=== PATIENT | female | born 1945 | race Asian ===

== ENCOUNTER 2021-11-27 16:47 | Inpatient (IN) | payer OTHER, SELFPAY ==
--- NOTE | ~2021-11-27 | CT_ITS ---
EXAMINATION: CT ANGIOGRAM OF THE CHEST WITH AND WITHOUT CONTRAST (CT PULMONARY ANGIOGRAM FOR PE) CLINICAL INFORMATION: Reason for Exam sob hx of PTB COMPARISON: None TECHNIQUE: Prior to contrast administration, noncontrast localization images were obtained. Subsequently, multidetector volumetric imaging was performed from the thoracic inlet to below the diaphragms following the administration of 54 mL Omnipaque 350 intravenous contrast. No contrast reaction reported Sagittal, coronal, and MIP oblique sagittal reformatted images were obtained on the CT workstation, uploaded to PACS, and reviewed. This CT examination was performed using dose optimization techniques as appropriate, variously including the following: *Automated exposure control *Adjustment of mA and/or kV according to patient size (this includes techniques or standardized protocols for targeted exams where dose is matched to indication/reason for exam; i.e. extremities or head) *Use of iterative reconstruction technique Total exam dose-length product 154 mGy-cm FINDINGS: QUALITY OF STUDY/CONTRAST BOLUS: Satisfactory. PULMONARY ARTERIES: No central or segmental pulmonary emboli. The left pulmonary artery is smaller compared to right side likely secondary to chronic changes. THORACIC AORTA: No aneurysm or dissection. LUNG: There is loss of left lung volume with lower lobe and left apical chronic scarring and consolidative changes. In addition there is scattered interstitial thickening throughout the left lung. Scattered right upper lobe parenchymal interstitial thickening and calcification seen likely chronic changes. PLEURA: There is bilateral apical pleural thickening and calcification suggestive chronic changes. MEDIASTINUM: The entire mediastinum is shifted to the left due to chronic left lung volume loss Normal heart size. No pericardial effusion. No hilar or mediastinal lymphadenopathy. No evidence of septal bowing or right heart strain. CHEST WALL/AXILLA: No axillary or internal mammary lymphadenopathy. OSSEOUS STRUCTURES: No lytic or sclerotic process seen. UPPER ABDOMEN: Visualized liver, spleen appears unremarkable. No reflux of contrast into the hepatic veins to suggest elevated right heart pressures. CT/CT angio chest PE protocol IMPRESSION: No evidence of PE. No evidence aortic dissection. Chronic pleural/thickening parenchymal scarring left lung with significant loss of left lung volume and ipsilateral mediastinal shift. There are scattered pleural and parenchymal calcifications. Mild right apical parenchymal scarring and pleural thickening is seen as well. VTE: negative
--- NOTE | 2021-11-27 16:53 | ED.SOB ---
HPI - SOB/Dyspnea General Chief Complaint: Dyspnea Stated Complaint: weakness,cough ,congestion Time Seen by Provider: 11/27/21 16:53 Source: patient and family Mode of arrival: wheelchair Limitations: no limitations History of Present Illness HPI Narrative: Patient with history of chronic lung disease history of PTB treated, lung fibrosis recurrent infections last sputum culture in 05/09 grew Pseudomonas been on tobramycin inhaler treated frequently for Pseudomonas infection comes here for 2 weeks of increased cough and congestion with low-grade fever, tested COVID 19 at home negative ,patient visited [place] and other family member was sick at that time. 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 2 weeks which she finished 4 days ago also prescribed prednisone 10 mg daily which she finished 1 week ago patient ,on arrival saturating 92% at room air, feel very weak and congested Related Data Home Medications Medication Instructions Recorded Confirmed mucus clearing device 11/22/21 mucus clearing device (Aerobika 11/22/21 Oscillating PEP Systm) omeprazole 20 mg capsule,delayed 20 mg PO DAILY 11/22/21 11/27/21 release sertraline 100 mg tablet 100 mg PO BEDTIME 11/22/21 11/27/21 tobramycin 300 mg/5 mL in 0.225 % 300 mg INHALATION Q12H 11/22/21 11/27/21 sodium chloride for nebulization atorvastatin 10 mg tablet 1 tab PO DAILY 11/27/21 11/27/21 calcium carbonate 600 mg-vitamin 1 tab PO BID 11/27/21 11/27/21 D3 5 mcg (200 unit) tablet cetirizine 10 mg tablet 1 tab PO BEDTIME 11/27/21 11/27/21 donepezil 5 mg tablet 5 mg PO DAILY 11/27/21 11/27/21 fluticasone 250 mcg-salmeterol 50 1 puff INHALATION Q12H 11/27/21 11/27/21 mcg/dose blistr powdr for inhalation (Sugey Inhwinsome) levalbuterol HCl 0.31 mg/3 mL 1 amp INHALATION Q4H PRN 11/27/21 11/27/21 solution for nebulization mirabegron 50 mg tablet,extended 1 tab PO DAILY 11/27/21 11/27/21 release 24 hr (Myrbetriq) tolterodine 1 mg tablet 1 tab PO BID 11/27/21 11/27/21 triamcinolone acetonide 0.1 % 1 appl TOPICAL DAILY 11/27/21 11/27/21 topical cream vitamin A-vitamin C-vit E-min 1 tab PO DAILY 11/27/21 11/27/21 tablet Allergies Allergy/AdvReac Type Severity Reaction Status Date / Time Sulfa (Sulfonamide Allergy Intermediate Rash Verified 11/27/21 17:04 Antibiotics) Review of Systems Review of Systems: Yes all other systems are reviewed and are negative [facility] Family History Family History Mother HTN (hypertension) Family/Other HTN (hypertension) Social History Social History Alcohol intake: never Patient Tobacco Use Status: Never used Tobacco Use of substances other than those prescribed or required for medical reasons: No Advance Directives: No Advance Directives Information Provided: No Physical Exam Vital Signs: Vital Signs: Last Vital Signs Temp 97.9 F 11/28/21 00:26 Pulse 63 11/28/21 00:26 Resp 20 11/28/21 00:26 BP 139/53 L 11/28/21 00:26 Pulse Ox 92 11/28/21 00:26 BMI result Body Mass Index 19.3 Appearance: Alert. Oriented X3. No acute distress. Eyes: No pallor or icterus ENT: Pharynx normal. Oral Mucosa moist Neck: Normal inspection. Neck supple. CVS: Normal heart rate and rhythm. Pulses normal. Respiratory: Mild respiratory distress with coarse crackles bilateral more on the left side Equal air entry bilateral, prolonged expiration Abdomen: Soft and nontender. Bowel sounds are present, no mass palpable, no CVA tenderness Skin: Skin warm and dry. Normal skin color. Normal skin turgor. Extremities: No lower extremity edema. No calf tenderness Neuro: Oriented X 3. No motor deficit. No sensory deficit.No cerebellar signs , cranial nerves II-XII intact MDM - SOB/Dyspnea MDM Narrative Medical decision making narrative: Patient with chronic lung disease already been vaccinated against COVID including a booster dose home test COVID negative comes here for increased shortness of breath pulse ox dropped to 89% at room air fluid, COVID-19 PCR came back positive. Will get CTA chest to rule out PE and pneumonia Patient's CTA chest showed chronic changes on the left side of the lung no active infiltrate noticed no PE because of the risk of Pseudomonas infection will start patient on Zosyn also Case discussed with Dr. Dempsey infectious Disease advised to start on remdesivir, Decadron also on baricitinib. As patient has very high chances mortality because of poor lung condition. At this time resting patient is saturating 90% will admit patient medicine service Differential Diagnosis Differential diagnosis: Likely acute exacerbation of chronic obstructive airways disease, pneumonia and pulmonary embolism Medical Records Attestation: I reviewed the patient's medical records. Lab Data Attestation: I reviewed the patient's lab results. Result diagrams: 11/27/21 17:39 11/27/21 17:39 Labs: Lab Results 11/27/21 11/27/21 11/27/21 Range/Units 17:39 17:39 17:39 WBC 8.3 (4.8-10.8) X10*3/uL RBC 4.15 L (4.20-5.50) X10*6/uL Hgb 10.6 L (12.0-16.0) g/dl Hct 34.1 L (37.0-47.0) % MCV 82.2 (80.0-98.0) fL MCH 25.5 L (27.0-33.0) pg MCHC 31.1 (31.0-35.0) g/dl RDW 16.9 H (11.0-16.0) % Plt Count 214 (160-400) X10*3/uL MPV 9.8 (9.4-12.3) fL Immature Gran % (Auto) 0.2 (0.0-0.4) % Neut % (Auto) 60.3 (45-73) % Lymph % (Auto) 27.0 (20-40) % [place] % (Auto) 10.8 (2-11) % Eos % (Auto) 1.5 (0-4) % Baso % (Auto) 0.2 (0-2) % Lymph # (Auto) 2.2 (1.2-4.9) X10*3/uL [place] # (Auto) 0.9 (0.1-1.2) X10*3/uL Eos # (Auto) 0.1 (0.0-0.4) X10*3/uL Baso # (Auto) 0.0 (0.0-0.2) X10*3/uL Abs Immat Gran (auto) 0.02 (0.00-0.03) X10*3/uL Absolute Neuts (auto) 5.0 (2.0-8.3) x10*3/uL Absolute Nucleated RBC 0.000 (0.0-0.012) X10*3/uL Nucleated RBC % (auto) 0.0 (0.0-0.2) /100WBC PT 12.1 (9.9-13.0) SEC INR 1.1 (0.9-1.1) APTT 32.1 (24.1-38.0) SEC Sodium 135 (135-145) mmol/L Potassium 4.6 (3.3-5.1) mmol/L Chloride 101 (96-108) mmol/L Carbon Dioxide 26 (22-29) mmol/L Anion Gap 13 (12-20) BUN 16 (9-16) mg/dL Creatinine 0.62 (0.5-1.4) mg/dL Estim Creat Clear Calc 63.1 Estimated GFR > 60 Random Glucose 77 (60-115) mg/dL Lactic Acid (0.5-2.0) mmol/L Calcium 9.0 (8.4-10.2) mg/dL Total Bilirubin < 0.2 (0.0-1.0) mg/dL AST 25 (5-31) U/L ALT 16 (0-31) U/L Alkaline Phosphatase 66 (39-117) U/L B-Natriuretic Peptide (<100) pg/mL Total Protein 6.7 (6.5-8.0) g/dL Albumin 3.5 (3.5-5.0) g/dL Urine Color Urine Appearance Urine pH (5.0-8.0) Ur Specific [place] (1.005-1.025) Urine Protein (NEG-TRACE) MG/DL Urine Glucose (UA) (NEG) MG/DL Urine Ketones (NEG) MG/DL Urine Blood (NEG) Urine Nitrite (NEG) Ur Leukocyte Esterase (NEG) Urine RBC (0) /HPF Urine WBC (0-4) /HPF Ur Squamous Epith Cells /LPF Urine Bacteria /LPF Influenza Type A (PCR) (Negative) Influenza Type B (PCR) (Negative) RSV RNA Qual (PCR) (Negative) SARS-CoV-2 RNA (RT-PCR) (Negative) 11/27/21 11/27/21 11/27/21 Range/Units 17:39 17:40 17:40 WBC (4.8-10.8) X10*3/uL RBC (4.20-5.50) X10*6/uL Hgb (12.0-16.0) g/dl Hct (37.0-47.0) % MCV (80.0-98.0) fL MCH (27.0-33.0) pg MCHC (31.0-35.0) g/dl RDW (11.0-16.0) % Plt Count (160-400) X10*3/uL MPV (9.4-12.3) fL Immature Gran % (Auto) (0.0-0.4) % Neut % (Auto) (45-73) % Lymph % (Auto) (20-40) % [place] % (Auto) (2-11) % Eos % (Auto) (0-4) % Baso % (Auto) (0-2) % Lymph # (Auto) (1.2-4.9) X10*3/uL [place] # (Auto) (0.1-1.2) X10*3/uL Eos # (Auto) (0.0-0.4) X10*3/uL Baso # (Auto) (0.0-0.2) X10*3/uL Abs Immat Gran (auto) (0.00-0.03) X10*3/uL Absolute Neuts (auto) (2.0-8.3) x10*3/uL Absolute Nucleated RBC (0.0-0.012) X10*3/uL Nucleated RBC % (auto) (0.0-0.2) /100WBC PT (9.9-13.0) SEC INR (0.9-1.1) APTT (24.1-38.0) SEC Sodium (135-145) mmol/L Potassium (3.3-5.1) mmol/L Chloride (96-108) mmol/L Carbon Dioxide (22-29) mmol/L Anion Gap (12-20) BUN (9-16) mg/dL Creatinine (0.5-1.4) mg/dL Estim Creat Clear Calc Estimated GFR Random Glucose (60-115) mg/dL Lactic Acid 0.6 (0.5-2.0) mmol/L Calcium (8.4-10.2) mg/dL Total Bilirubin (0.0-1.0) mg/dL AST (5-31) U/L ALT (0-31) U/L Alkaline Phosphatase (39-117) U/L B-Natriuretic Peptide 113 H (<100) pg/mL Total Protein (6.5-8.0) g/dL Albumin (3.5-5.0) g/dL Urine Color Urine Appearance Urine pH (5.0-8.0) Ur Specific [place] (1.005-1.025) Urine Protein (NEG-TRACE) MG/DL Urine Glucose (UA) (NEG) MG/DL Urine Ketones (NEG) MG/DL Urine Blood (NEG) Urine Nitrite (NEG) Ur Leukocyte Esterase (NEG) Urine RBC (0) /HPF Urine WBC (0-4) /HPF Ur Squamous Epith Cells /LPF Urine Bacteria /LPF Influenza Type A (PCR) NEGATIVE (Negative) Influenza Type B (PCR) NEGATIVE (Negative) RSV RNA Qual (PCR) NEGATIVE (Negative) SARS-CoV-2 RNA (RT-PCR) POSITIVE A (Negative) 11/27/21 Range/Units 21:56 WBC (4.8-10.8) X10*3/uL RBC (4.20-5.50) X10*6/uL Hgb (12.0-16.0) g/dl Hct (37.0-47.0) % MCV (80.0-98.0) fL MCH (27.0-33.0) pg MCHC (31.0-35.0) g/dl RDW (11.0-16.0) % Plt Count (160-400) X10*3/uL MPV (9.4-12.3) fL Immature Gran % (Auto) (0.0-0.4) % Neut % (Auto) (45-73) % Lymph % (Auto) (20-40) % [place] % (Auto) (2-11) % Eos % (Auto) (0-4) % Baso % (Auto) (0-2) % Lymph # (Auto) (1.2-4.9) X10*3/uL [place] # (Auto) (0.1-1.2) X10*3/uL Eos # (Auto) (0.0-0.4) X10*3/uL Baso # (Auto) (0.0-0.2) X10*3/uL Abs Immat Gran (auto) (0.00-0.03) X10*3/uL Absolute Neuts (auto) (2.0-8.3) x10*3/uL Absolute Nucleated RBC (0.0-0.012) X10*3/uL Nucleated RBC % (auto) (0.0-0.2) /100WBC PT (9.9-13.0) SEC INR (0.9-1.1) APTT (24.1-38.0) SEC Sodium (135-145) mmol/L Potassium (3.3-5.1) mmol/L Chloride (96-108) mmol/L Carbon Dioxide (22-29) mmol/L Anion Gap (12-20) BUN (9-16) mg/dL Creatinine (0.5-1.4) mg/dL Estim Creat Clear Calc Estimated GFR Random Glucose (60-115) mg/dL Lactic Acid (0.5-2.0) mmol/L Calcium (8.4-10.2) mg/dL Total Bilirubin (0.0-1.0) mg/dL AST (5-31) U/L ALT (0-31) U/L Alkaline Phosphatase (39-117) U/L B-Natriuretic Peptide (<100) pg/mL Total Protein (6.5-8.0) g/dL Albumin (3.5-5.0) g/dL Urine Color YELLOW Urine Appearance CLEAR Urine pH 6.0 (5.0-8.0) Ur Specific [place] <= 1.005 (1.005-1.025) Urine Protein NEG (NEG-TRACE) MG/DL Urine Glucose (UA) NEG (NEG) MG/DL Urine Ketones NEG (NEG) MG/DL Urine Blood TRACE (NEG) Urine Nitrite NEG (NEG) Ur Leukocyte Esterase NEG (NEG) Urine RBC 0-2 (0) /HPF Urine WBC 0 (0-4) /HPF Ur Squamous Epith Cells TRACE /LPF Urine Bacteria TRACE /LPF Influenza Type A (PCR) (Negative) Influenza Type B (PCR) (Negative) RSV RNA Qual (PCR) (Negative) SARS-CoV-2 RNA (RT-PCR) (Negative) ECG Data Attestation: I personally reviewed and interpreted this ECG as follows: Interpretation: Sinus rhythm heart rate 67 beats per minute PACs normal interval normal axis no acute ST T wave changes no acute ischemia Critical Care Time Critical Care Time Critical Care Time: Yes Total Critical Care Time: 55 Attestation: I spent 55 minutes of critical care, with interventions, assessments, speaking to patient, consultants, and family. Discharge Plan Discharge Clinical Impression: Acute hypoxemic respiratory failure due to COVID-19, Chronic interstitial lung disease Patient Disposition: Admitted As Inpatient
--- NOTE | 2021-11-27 16:54 | ECG_ITS ---
Test Reason : SOB Blood Pressure : / mmHG Vent. Rate : 067 BPM Atrial Rate : 067 BPM P-R Int : 164 ms QRS Dur : 082 ms QT Int : 376 ms P-R-T Axes : 084 076 072 degrees QTc Int : 397 ms Sinus rhythm with Premature atrial complexes Otherwise normal ECG No previous ECGs available Referred By: Rico Patel Electronically Signed By:Wang Mirza
[2021-11-27] MEDS: Albuterol/Iprat 2.5/0.5MG 3 ML AMPUL.NEB INHALE (17:20)
[2021-11-27 17:21] VITALS: BP 149/85; PULSE 78; RESP 20; TEMP 36.4; O2SAT 98
[2021-11-27 17:25] VITALS: PULSE 87; RESP 20; O2SAT 94
[2021-11-27 17:36] VITALS: BMI 19.3
[2021-11-27 17:44] LABS: MANUAL DIFF FLAG NO
[2021-11-27 17:47] LABS: Basophils Percent Auto 0.2 % (0-2); Eosinophils Absolute Auto 0.1 X10*3/uL (0.0-0.4); Eosinophils Percent Auto 1.5 % (0-4); Hematocrit 34.1 % (37.0-47.0); Hemoglobin 10.6 g/dl (12.0-16.0); Imm Gran Abs Auto 0.02 X10*3/uL (0.00-0.03); Imm Gran Pct Auto 0.2 % (0.0-0.4); Lymphocytes Absolute Auto 2.2 X10*3/uL (1.2-4.9); Mean Corpuscular HGB Conc 31.1 g/dl (31.0-35.0); Mean Corpuscular Hemoglobin 25.5 pg (27.0-33.0); Mean Corpuscular Volume 82.2 fL (80.0-98.0); Mean Platelet Volume 9.8 fL (9.4-12.3); Monocytes Absolute Auto 0.9 X10*3/uL (0.1-1.2); Monocytes Percent Auto 10.8 % (2-11); Neutrophils Percent Auto 60.3 % (45-73); Platelet Count 214 X10*3/uL (160-400); Red Blood Count 4.15 X10*6/uL (4.20-5.50); Red Cell Distribution Width 16.9 % (11.0-16.0); White Blood Count 8.3 X10*3/uL (4.8-10.8)
[2021-11-27 17:52] LABS: INTERNATIONAL NORM RATIO 1.1 (0.9-1.1); Prothrombin Time 12.1 SEC (9.9-13.0)
[2021-11-27 17:54] LABS: Partial Thromboplastin Time 32.1 SEC (24.1-38.0)
[2021-11-27 18:00] VITALS: BP 148/79; PULSE 75; RESP 16; TEMP 37.4; O2SAT 89
[2021-11-27 18:01] LABS: Lactic Acid 0.6 mmol/L (0.5-2.0)
[2021-11-27] MEDS: Piperacillin Sodium/Tazobactam 3.375 GM in 0.9 % Sodium Chloride 50 ML IV (18:06)
[2021-11-27 18:07] LABS: Alanine Aminotransferase 16 U/L (0-31); Albumin Level 3.5 g/dL (3.5-5.0); Alkaline Phosphatase 66 U/L (39-117); Anion Gap 13 (12-20); Aspartate Amino Transferase 25 U/L (5-31); Bilirubin Total < 0.2 mg/dL (0.0-1.0); Blood Urea Nitrogen 16 mg/dL (9-16); Carbon Dioxide 26 mmol/L (22-29); Chloride 101 mmol/L (96-108); Creatinine Clr Calc Pharmacy 63.1; Estimated Glomerular Filt Rate > 60; Glucose Random 77 mg/dL (60-115); Potassium 4.6 mmol/L (3.3-5.1); Sodium 135 mmol/L (135-145); Total Protein 6.7 g/dL (6.5-8.0)
[2021-11-27 18:10] LABS: B Type Natriuretic Peptide 113 pg/mL (<100)
[2021-11-27 18:22] LABS: Influenza A PCR NEGATIVE (Negative); Influenza B PCR NEGATIVE (Negative); Resp Syncy Virus RNA Qual PCR NEGATIVE (Negative); SARS COV2 PCR INHOUSE POSITIVE (Negative)
--- NOTE | 2021-11-27 18:58 | PC.NURSE ---
PATIENT 02 SAT DROP TO 89 % MD AWARE ,PATIENT WAS PUT ON 2 L 02 .
--- NOTE | 2021-11-27 19:02 | PC.NURSE ---
patient had a glass of warm milk ,pbj sandwich and some fruits .
[2021-11-27] MEDS: iohexoL 350 MG/ML 100 ML INFUS..BTL IV (19:37)
[2021-11-27 20:00] VITALS: BP 145/72; PULSE 61; RESP 20; TEMP 36.7; O2SAT 94
[2021-11-27] MEDS: dexAMETHasone sod phosphate 4 MG/ML VIAL 6 MG IVPUSH (20:09)
[2021-11-27] MEDS: Remdesivir 200 MG in 0.9 % Sodium Chloride 210 ML 105 MG IV (21:36)
[2021-11-27 22:00] VITALS: BP 106/70; PULSE 61; RESP 15; O2SAT 94
[2021-11-27 22:02] LABS: Appearance Urine CLEAR; Color Urine YELLOW; Glucose Urine UA NEG (NEG); Leukocyte Esterase Urine NEG (NEG); Nitrite Urine NEG (NEG); Specific Gravity - Urine <= 1.005 (1.005-1.025); UACC Culture Trigger NO; Urine Blood TRACE (NEG); Urine Ketones NEG (NEG); Urine Protein NEG (NEG-TRACE)
[2021-11-27 22:09] LABS: Bacteria Urine TRACE /LPF; RBC Urine 0-2 /HPF (0); Squamous Epithelial Cell Urine TRACE /LPF; WBC Urine 0 /HPF (0-4)
--- NOTE | 2021-11-27 22:11 | PHA.MEDREC ---
Pharmacy Consult ? Medication Reconciliation Pharmacy has completed the medication reconciliation.
[2021-11-27] MEDS: Mirabegron 50 MG TAB.ER.24H PO (23:06)
[2021-11-27] MEDS: Sertraline HCL 50 MG TABLET PO (23:07)
[2021-11-27] MEDS: Loratadine 10 MG TABLET PO (23:07)
--- NOTE | 2021-11-27 23:21 | P.HPHOSP_ITS ---
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 Mentioned that she recently visited [place] after coming back she continued to have the symptoms. Has home tested for COVID-19 which resulted negative but continued to have low-grade fevers; also mentions mild shortness of breath. Denies any abdominal discomfort. Denies any urinary frequency urgency or dysuria. Denies any nausea vomiting or diarrhea. Denies any difficulty swallowing. Mentions that she recently finished a 2 week course of Levaquin; as per the patient's daughter patient takes tobramycin nebulizations month on month of for recurrent Pseudomonas infections. Also finished a course of prednisone. Also mentions she has chronic left-sided lung fibrosis/scarring and has chronic left-sided chest pain going on for more than few months. But for the past week she has been having increased pain on the left side which is nagging/Achy. Reports generalized weakness. Review of all other systems is negative except mentioned above ER course: Per ER team patient on presentation noted to be saturating 89% on room air; placed on supplemental oxygen; noted to mild respiratory distress with coarse crackles bilateral lung mane with prolonged expiration; CT chest was done which showed no evidence of pulmonary embolism but noted left-sided pleural thickening/parenchymal scarring; also noted mild right apical parenchymal scarring and pleural thickening-chronic. Patient was empirically given Zosyn, Decadron, remdesivir,% neb. ER team discussed with Infectious Disease consult. Admitted to the hospital for further management PMFSH Family History Mother HTN (hypertension) Family/Other HTN (hypertension) Social History Alcohol intake: never Patient Tobacco Use Status: Never used Tobacco Use of substances other than those prescribed or required for medical reasons: No Advance Directives: No Advance Directives Information Provided: No service: No Current occupational status: retired Meds Allergies Allergy/AdvReac Type Severity Reaction Status Date / Time Sulfa (Sulfonamide Allergy Intermediate Rash Verified 11/27/21 17:04 Antibiotics) Active Medications: Current Medications Acetaminophen (Acetaminophen 325 Mg Tablet) 650 mg PO Q6H PRN PRN Reason: Pain, Mild (Pain Scale 1-3) Atorvastatin Calcium (Atorvastatin Calcium 10 Mg Tablet) 10 mg PO DAILY [facility] Baricitinib (Baricitinib 2 Mg Tablet) 4 mg PO DAILY [facility] Stop: 12/10/21 09:01 Last Admin: 11/27/21 21:35 Dose: 4 mg Documented by: Dexamethasone Sodium Phosphate (Dexamethasone Sod Phosphate 4 Mg/Ml Vial) 6 mg IVPUSH DAILY [facility] Donepezil HCl (Donepezil Hcl 5 Mg Tablet) 5 mg PO DAILY [facility] Enoxaparin Sodium (Enoxaparin Sodium 40 Mg/0.4 Ml Syringe) 40 mg SUBCUT Q24H [facility] Remdesivir 100 mg/ Sodium (Chloride) 230 mls @ 115 mls/hr IV Q24H [facility] Stop: 12/01/21 22:59 Piperacillin Sod/Tazobactam (Sod 3.375 gm/ Sodium Chloride) 50 mls @ 100 mls/hr IV Q6H [facility] Loratadine (Loratadine 10 Mg Tablet) 10 mg PO BEDTIME [facility] Melatonin (Melatonin 3 Mg Tablet) 6 mg PO BEDTIME PRN PRN Reason: Insomnia Mirabegron (Mirabegron 50 Mg Tab.Er.24h) 50 mg PO DAILY [facility] Morphine Sulfate (Morphine Sulfate 4 Mg/Ml Cartridge) 1 mg IVPUSH Q4H PRN; Protocol PRN Reason: Pain, SOB Non-Formulary Medication (Calcium Carbonate-Vitamin D3) 1 tab PO BID [facility] Non-Formulary Medication (Fluticasone Propion-Salmeterol [Wixela Inhub]) 1 puff INHALE Q12H [facility] Non-Formulary Medication (Tobramycin In 0.225 % Nacl) 300 mg INHALE Q12H [facility] Non-Formulary Medication (Tolterodine) 1 tab PO BID [facility] Non-Formulary Medication (Vitamin A-Vitamin C-Vit E-Min) 1 tab PO DAILY [facility] Omeprazole (Omeprazole 20 Mg Capsule.Dr) 20 mg PO DAILY [facility] Sertraline HCl (Sertraline Hcl 100 Mg Tablet) 100 mg PO BEDTIME [facility] Sodium Chloride (0.9 % Sodium Chloride Flush 3 Ml Syringe) 3 ml IVFLUSH QSHIFT [facility] Tolterodine Tartrate (Tolterodine Tartrate La 2 Mg Cap.Er.24h) 2 mg PO DAILY [facility] Triamcinolone Acetonide (Triamcinolone Acet 0.1 % Cream 15 Gm Tube) 1 appl TOPICAL DAILY [facility]; Protocol Home Medications Medication Instructions Recorded Confirmed Last Taken Type mucus clearing device 11/22/21 Unknown History mucus clearing device (Aerobika 11/22/21 Unknown History Oscillating PEP Systm) omeprazole 20 mg capsule,delayed 20 mg PO DAILY 11/22/21 11/27/21 11/27/21 History release sertraline 100 mg tablet 100 mg PO BEDTIME 11/22/21 11/27/21 11/26/21 History tobramycin 300 mg/5 mL in 0.225 % 300 mg INHALATION Q12H 11/22/21 11/27/21 11/27/21 History sodium chloride for nebulization atorvastatin 10 mg tablet 1 tab PO DAILY 11/27/21 11/27/21 11/27/21 History calcium carbonate 600 mg-vitamin 1 tab PO BID 11/27/21 11/27/21 11/27/21 History D3 5 mcg (200 unit) tablet cetirizine 10 mg tablet 1 tab PO BEDTIME 11/27/21 11/27/21 11/26/21 History donepezil 5 mg tablet 5 mg PO DAILY 11/27/21 11/27/21 11/27/21 History fluticasone 250 mcg-salmeterol 50 1 puff INHALATION Q12H 11/27/21 11/27/21 11/27/21 History mcg/dose blistr powdr for inhalation (Wixela Inhub) levalbuterol HCl 0.31 mg/3 mL 1 amp INHALATION Q4H PRN 11/27/21 11/27/21 Unknown History solution for nebulization mirabegron 50 mg tablet,extended 1 tab PO DAILY 11/27/21 11/27/21 Unknown History release 24 hr (Myrbetriq) tolterodine 1 mg tablet 1 tab PO BID 11/27/21 11/27/21 Unknown History triamcinolone acetonide 0.1 % 1 appl TOPICAL DAILY 11/27/21 11/27/21 Unknown History topical cream vitamin A-vitamin C-vit E-min 1 tab PO DAILY 11/27/21 11/27/21 11/27/21 History tablet Physical Exam Vital Signs and Narrative: Vital Signs: Last Vital Signs Temp 98.0 F 11/27/21 20:00 Pulse 61 11/27/21 22:00 Resp 15 11/27/21 22:00 BP 106/70 11/27/21 22:00 Pulse Ox 94 11/27/21 22:00 BMI result Body Mass Index 19.3 Gen: Appears be in no acute distress; lying comfortably on the bed. Saturating 94-95%. Able to finish full sentences. HEENT: NCAT, Moist mucosa. Pulmonary: Slightly diminished breath sounds on the left side; coarse breath sounds on the right side. CVS: Normal S1-S2 Abdomen: BS+, Soft, Nontender Extremities: Warm well perfused Neuro: Alert and awake. Results Labs CBC and Chem 7: 11/28/21 07:31 11/28/21 07:31 Labs: Laboratory Results - last 24 hr 11/27/21 11/27/21 11/27/21 17:39 17:39 17:39 MCV 82.2 MCH 25.5 L MCHC 31.1 RDW 16.9 H Plt Count 214 MPV 9.8 Immature Gran % (Auto) 0.2 Neut % (Auto) 60.3 Lymph % (Auto) 27.0 [place] % (Auto) 10.8 Eos % (Auto) 1.5 Baso % (Auto) 0.2 Lymph # (Auto) 2.2 [place] # (Auto) 0.9 Eos # (Auto) 0.1 Baso # (Auto) 0.0 Abs Immat Gran (auto) 0.02 Absolute Neuts (auto) 5.0 Absolute Nucleated RBC 0.000 Nucleated RBC % (auto) 0.0 PT 12.1 INR 1.1 APTT 32.1 Anion Gap 13 Estim Creat Clear Calc 63.1 Estimated GFR > 60 Random Glucose 77 Lactic Acid Calcium 9.0 Total Bilirubin < 0.2 AST 25 ALT 16 Alkaline Phosphatase 66 B-Natriuretic Peptide Total Protein 6.7 Albumin 3.5 Urine Color Urine Appearance Urine pH Ur Specific [place] Urine Protein Urine Glucose (UA) Urine Ketones Urine Blood Urine Nitrite Ur Leukocyte Esterase Urine RBC Urine WBC Ur Squamous Epith Cells Urine Bacteria Influenza Type A (PCR) Influenza Type B (PCR) RSV RNA Qual (PCR) SARS-CoV-2 RNA (RT-PCR) 11/27/21 11/27/21 11/27/21 17:39 17:40 17:40 MCV MCH MCHC RDW Plt Count MPV Immature Gran % (Auto) Neut % (Auto) Lymph % (Auto) [place] % (Auto) Eos % (Auto) Baso % (Auto) Lymph # (Auto) [place] # (Auto) Eos # (Auto) Baso # (Auto) Abs Immat Gran (auto) Absolute Neuts (auto) Absolute Nucleated RBC Nucleated RBC % (auto) PT INR APTT Anion Gap Estim Creat Clear Calc Estimated GFR Random Glucose Lactic Acid 0.6 Calcium Total Bilirubin AST ALT Alkaline Phosphatase B-Natriuretic Peptide 113 H Total Protein Albumin Urine Color Urine Appearance Urine pH Ur Specific [place] Urine Protein Urine Glucose (UA) Urine Ketones Urine Blood Urine Nitrite Ur Leukocyte Esterase Urine RBC Urine WBC Ur Squamous Epith Cells Urine Bacteria Influenza Type A (PCR) NEGATIVE Influenza Type B (PCR) NEGATIVE RSV RNA Qual (PCR) NEGATIVE SARS-CoV-2 RNA (RT-PCR) POSITIVE A 11/27/21 21:56 MCV MCH MCHC RDW Plt Count MPV Immature Gran % (Auto) Neut % (Auto) Lymph % (Auto) [place] % (Auto) Eos % (Auto) Baso % (Auto) Lymph # (Auto) [place] # (Auto) Eos # (Auto) Baso # (Auto) Abs Immat Gran (auto) Absolute Neuts (auto) Absolute Nucleated RBC Nucleated RBC % (auto) PT INR APTT Anion Gap Estim Creat Clear Calc Estimated GFR Random Glucose Lactic Acid Calcium Total Bilirubin AST ALT Alkaline Phosphatase B-Natriuretic Peptide Total Protein Albumin Urine Color YELLOW Urine Appearance CLEAR Urine pH 6.0 Ur Specific [place] <= 1.005 Urine Protein NEG Urine Glucose (UA) NEG Urine Ketones NEG Urine Blood TRACE Urine Nitrite NEG Ur Leukocyte Esterase NEG Urine RBC 0-2 Urine WBC 0 Ur Squamous Epith Cells TRACE Urine Bacteria TRACE Influenza Type A (PCR) Influenza Type B (PCR) RSV RNA Qual (PCR) SARS-CoV-2 RNA (RT-PCR) Imaging Radiologist's Impressions: Impressions Chest CTA 11/27/21 19:54 IMPRESSION: No evidence of PE. No evidence aortic dissection. Chronic pleural/thickening parenchymal scarring left lung with significant loss of left lung volume and ipsilateral mediastinal shift. There are scattered pleural and parenchymal calcifications. Mild right apical parenchymal scarring and pleural thickening is seen as well. 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 Noted to have COVID-[address] chest showed no evidence of pulmonary embolism but noted left-sided parenchymal scarring COVID-19 positive: Also initially concern for pneumonia. Patient recently finished 2 week course of Levaquin. Known history of recurrent Pseudomonas infections. Will keep the patient empirically on Zosyn for now. Patient was saturating 89% on room air as per the ER team. Placed on supplemental oxygen p.r.n.. Patient was started on Decadron, Barcitinib, remdesivir in the ER. Will await further recommendations from Infectious Disease consult in regrads continuing above meds. Albuterol inhaler p.r.n. History of pulmonary fibrosis/left-sided pulmonary scarring/left-sided chest pain: Chronic as per the patient. Not on home oxygen. Pulmonary consult. Requested records from [facility]. Patient reports she takes tobramycin nebulizations-month on/month off. History of overactive bladder: Continue home Mirabegron DVT prophylaxis: Lovenox Code status: Full code. Confirmed with the patient's daughter at bedside. Quality Stroke Does the patient have a stroke diagnosis?: No VTE Prior VTE?: No VTE Risk Level:: Medical - moderate - high VTE Device Contraindication: Treatment Not Indicated VTE Drug Contraindication: N/A - Med Ordered
[2021-11-27] MEDS: Albuterol Sulfate 90 MCG 8 GM INHALER 2 PUFF INHALE (23:47)
[2021-11-28 00:26] VITALS: BP 139/53; PULSE 63; RESP 20; TEMP 36.6; O2SAT 92
[2021-11-28] MEDS: Piperacillin Sodium/Tazobactam 3.375 GM in 0.9 % Sodium Chloride 50 ML IV ×3 (01:35→13:48)
[2021-11-28 04:24] VITALS: BP 130/68; PULSE 59; RESP 20; TEMP 36.8; O2SAT 92
[2021-11-28] MEDS: Atorvastatin Calcium 10 MG TABLET PO (07:52)
[2021-11-28] MEDS: dexAMETHasone sod phosphate 4 MG/ML VIAL 6 MG IVPUSH (07:52)
[2021-11-28] MEDS: Mirabegron 50 MG TAB.ER.24H PO (07:52)
[2021-11-28] MEDS: 0.9 % Sodium Chloride Flush 3 ML SYRINGE IVFLUSH (07:52)
[2021-11-28] MEDS: Omeprazole 20 MG CAPSULE.DR PO (07:52)
[2021-11-28] MEDS: Donepezil HCl 5 MG TABLET PO (07:55)
[2021-11-28 08:00] LABS: MANUAL DIFF FLAG NO
[2021-11-28 08:07] LABS: Basophils Percent Auto 0.2 % (0-2); Hematocrit 35.6 % (37.0-47.0); Hemoglobin 11.1 g/dl (12.0-16.0); Imm Gran Abs Auto 0.02 X10*3/uL (0.00-0.03); Imm Gran Pct Auto 0.5 % (0.0-0.4); Lymphocytes Absolute Auto 1.2 X10*3/uL (1.2-4.9); Mean Corpuscular HGB Conc 31.2 g/dl (31.0-35.0); Mean Corpuscular Hemoglobin 25.5 pg (27.0-33.0); Mean Corpuscular Volume 81.7 fL (80.0-98.0); Monocytes Absolute Auto 0.2 X10*3/uL (0.1-1.2); Monocytes Percent Auto 4.1 % (2-11); Neutrophils Percent Auto 68.2 % (45-73); Platelet Count 223 X10*3/uL (160-400); Red Blood Count 4.36 X10*6/uL (4.20-5.50); White Blood Count 4.4 X10*3/uL (4.8-10.8)
[2021-11-28 08:20] LABS: Anion Gap 12 (12-20); Blood Urea Nitrogen 14 mg/dL (9-16); Carbon Dioxide 27 mmol/L (22-29); Chloride 104 mmol/L (96-108); Creatinine Clr Calc Pharmacy 65.2; Estimated Glomerular Filt Rate > 60; Glucose Random 104 mg/dL (60-115); Potassium 4.6 mmol/L (3.3-5.1); Sodium 138 mmol/L (135-145)
--- NOTE | 2021-11-28 08:36 | P.PNIM_ITS ---
Subjective Subjective Date of Service: 11/28/21 Interval History: COVID infection. Review of Systems patient currently denies any shortness of breath or chest pain or nausea or vomiting or abdominal pain or fever or chills or cough. Physical Exam Vital Signs: Vital Signs: Last Vital Signs Temp 98.2 F 11/28/21 04:24 Pulse 59 11/28/21 04:24 Resp 20 11/28/21 04:24 BP 130/68 11/28/21 04:24 Pulse Ox 92 11/28/21 04:24 BMI result Body Mass Index 19.3 Gen: Appears be in no acute distress/lying comfortable/? Sat fine /room air, Able to finish full sentences. HEENT:? NCAT,? Moist mucosa. Pulmonary:? Slightly diminished breath sounds on the left side; coarse breath sounds on the right side. CVS:? Normal S1-S2 Abdomen: BS+, Soft, Nontender Extremities:? no cyanosis or edema Neuro:?aox3 , non focal Objective Data Active Medications Acetaminophen (Acetaminophen 325 Mg Tablet) 650 mg PO Q6H PRN PRN Reason: Pain, Mild (Pain Scale 1-3) Atorvastatin Calcium (Atorvastatin Calcium 10 Mg Tablet) 10 mg PO DAILY [facility] Last Admin: 11/28/21 07:52 Dose: 10 mg Documented by: SATHISH Baricitinib (Baricitinib 2 Mg Tablet) 4 mg PO DAILY [facility] Stop: 12/10/21 09:01 Last Admin: 11/27/21 21:35 Dose: 4 mg Documented by: PERRY-JIMBO Calcium Carbonate/Cholecalciferol (Calcium + Vitamin D 250 Mg Tablet) 500 mg PO BID [facility] Dexamethasone Sodium Phosphate (Dexamethasone Sod Phosphate 4 Mg/Ml Vial) 6 mg IVPUSH DAILY [facility] Last Admin: 11/28/21 07:52 Dose: 6 mg Documented by: SATHISH Donepezil HCl (Donepezil Hcl 5 Mg Tablet) 5 mg PO DAILY [facility] Last Admin: 11/28/21 07:55 Dose: 5 mg Documented by: SATHISH Enoxaparin Sodium (Enoxaparin Sodium 40 Mg/0.4 Ml Syringe) 40 mg SUBCUT Q24H [facility] Last Admin: 11/27/21 23:48 Dose: Not Given Documented by: MICHELLE Non-Admin Reason: Patient Asleep Fluticasone/Vilanterol (Fluticasone/Vilanterol 100/25 Blst.W.Dev) 1 puff INHALE RDAILY [facility] Remdesivir 100 mg/ Sodium (Chloride) 230 mls @ 115 mls/hr IV Q24H [facility] Stop: 12/01/21 22:59 Piperacillin Sod/Tazobactam (Sod 3.375 gm/ Sodium Chloride) 50 mls @ 100 mls/hr IV Q6H [facility] Last Admin: 11/28/21 07:51 Dose: 100 mls/hr Documented by: SATHISH Loratadine (Loratadine 10 Mg Tablet) 10 mg PO BEDTIME [facility] Melatonin (Melatonin 3 Mg Tablet) 6 mg PO BEDTIME PRN PRN Reason: Insomnia Mirabegron (Mirabegron 50 Mg Tab.Er.24h) 50 mg PO DAILY [facility] Last Admin: 11/28/21 07:52 Dose: 50 mg Documented by: SATHISH Morphine Sulfate (Morphine Sulfate 4 Mg/Ml Cartridge) 1 mg IVPUSH Q4H PRN; Protocol PRN Reason: Pain, SOB Multivitamins/Minerals (Multivitamin With Minerals Tablet) 1 tab PO DAILY [facility] Non-Formulary Medication (Tolterodine) 1 tab PO BID [facility] Omeprazole (Omeprazole 20 Mg Capsule.Dr) 20 mg PO DAILY [facility] Last Admin: 11/28/21 07:52 Dose: 20 mg Documented by: SATHISH Sertraline HCl (Sertraline Hcl 100 Mg Tablet) 100 mg PO BEDTIME [facility] Sodium Chloride (0.9 % Sodium Chloride Flush 3 Ml Syringe) 3 ml IVFLUSH QSHIFT [facility] Last Admin: 11/28/21 07:52 Dose: 3 ml Documented by: SATHISH Tobramycin Sulfate (Tobramycin Sulfate 80 Mg/2 Ml Vial) 300 mg INHALE RBID [facility] Tolterodine Tartrate (Tolterodine Tartrate La 2 Mg Cap.Er.24h) 2 mg PO DAILY [facility] Triamcinolone Acetonide (Triamcinolone Acet 0.1 % Cream 15 Gm Tube) 1 appl TOPICAL DAILY [facility]; Protocol Labs CBC & Chem 7: 11/28/21 07:31 11/28/21 07:31 Labs: Laboratory Results - last 24 hr 11/27/21 11/27/21 11/27/21 17:39 17:39 17:39 MCV 82.2 MCH 25.5 L MCHC 31.1 RDW 16.9 H Plt Count 214 MPV 9.8 Immature Gran % (Auto) 0.2 Neut % (Auto) 60.3 Lymph % (Auto) 27.0 [place] % (Auto) 10.8 Eos % (Auto) 1.5 Baso % (Auto) 0.2 Lymph # (Auto) 2.2 [place] # (Auto) 0.9 Eos # (Auto) 0.1 Baso # (Auto) 0.0 Abs Immat Gran (auto) 0.02 Absolute Neuts (auto) 5.0 Absolute Nucleated RBC 0.000 Nucleated RBC % (auto) 0.0 PT 12.1 INR 1.1 APTT 32.1 Anion Gap 13 Estim Creat Clear Calc 63.1 Estimated GFR > 60 Random Glucose 77 Lactic Acid Calcium 9.0 Total Bilirubin < 0.2 AST 25 ALT 16 Alkaline Phosphatase 66 B-Natriuretic Peptide Total Protein 6.7 Albumin 3.5 Urine Color Urine Appearance Urine pH Ur Specific [place] Urine Protein Urine Glucose (UA) Urine Ketones Urine Blood Urine Nitrite Ur Leukocyte Esterase Urine RBC Urine WBC Ur Squamous Epith Cells Urine Bacteria Influenza Type A (PCR) Influenza Type B (PCR) RSV RNA Qual (PCR) SARS-CoV-2 RNA (RT-PCR) 11/27/21 11/27/21 11/27/21 17:39 17:40 17:40 MCV MCH MCHC RDW Plt Count MPV Immature Gran % (Auto) Neut % (Auto) Lymph % (Auto) [place] % (Auto) Eos % (Auto) Baso % (Auto) Lymph # (Auto) [place] # (Auto) Eos # (Auto) Baso # (Auto) Abs Immat Gran (auto) Absolute Neuts (auto) Absolute Nucleated RBC Nucleated RBC % (auto) PT INR APTT Anion Gap Estim Creat Clear Calc Estimated GFR Random Glucose Lactic Acid 0.6 Calcium Total Bilirubin AST ALT Alkaline Phosphatase B-Natriuretic Peptide 113 H Total Protein Albumin Urine Color Urine Appearance Urine pH Ur Specific [place] Urine Protein Urine Glucose (UA) Urine Ketones Urine Blood Urine Nitrite Ur Leukocyte Esterase Urine RBC Urine WBC Ur Squamous Epith Cells Urine Bacteria Influenza Type A (PCR) NEGATIVE Influenza Type B (PCR) NEGATIVE RSV RNA Qual (PCR) NEGATIVE SARS-CoV-2 RNA (RT-PCR) POSITIVE A 11/27/21 11/28/21 11/28/21 21:56 07:31 07:31 MCV 81.7 MCH 25.5 L MCHC 31.2 RDW 17.0 H Plt Count 223 MPV 10.0 Immature Gran % (Auto) 0.5 H Neut % (Auto) 68.2 Lymph % (Auto) 27.0 [place] % (Auto) 4.1 Eos % (Auto) 0.0 Baso % (Auto) 0.2 Lymph # (Auto) 1.2 [place] # (Auto) 0.2 Eos # (Auto) 0.0 Baso # (Auto) 0.0 Abs Immat Gran (auto) 0.02 Absolute Neuts (auto) 3.0 Absolute Nucleated RBC 0.000 Nucleated RBC % (auto) 0.0 PT INR APTT Anion Gap 12 Estim Creat Clear Calc 65.2 Estimated GFR > 60 Random Glucose 104 Lactic Acid Calcium 9.0 Total Bilirubin AST ALT Alkaline Phosphatase B-Natriuretic Peptide Total Protein Albumin Urine Color YELLOW Urine Appearance CLEAR Urine pH 6.0 Ur Specific [place] <= 1.005 Urine Protein NEG Urine Glucose (UA) NEG Urine Ketones NEG Urine Blood TRACE Urine Nitrite NEG Ur Leukocyte Esterase NEG Urine RBC 0-2 Urine WBC 0 Ur Squamous Epith Cells TRACE Urine Bacteria TRACE Influenza Type A (PCR) Influenza Type B (PCR) RSV RNA Qual (PCR) SARS-CoV-2 RNA (RT-PCR) Assessment and Plan (1) COVID-19: Status: Acute (2) Pulmonary fibrosis: Status: Acute Plan 76-year-old female with a past medical history of hyperlipidemia, history of pulmonary tuberculosis, left-sided lung fibrosis/chronic scarring; history of re current Pseudomonas infections on alternate month on month off tobramycin nebulizer inhalations; presented to the hospital with a chief complaint of cough and congestion, whitish sputum production, low-grade fevers.? Noted to have COVID-[address] chest showed no evidence of pulmonary embolism but noted left-sided parenchymal scarring 1.COVID-19 Infection:Also initially concern for pneumonia.? Patient recently finished 2 week course of Levaquin.? Known history of recurrent Pseudomonas inf ections.? does not seem to be hypoxic, discussed with ID and Pulmonary less like bacterial infection currently so hold off on Zosyn. Also will stop baricitnib - not on high flow id recommended IV remdesivir 3 days([facility] protocol three days Remdesivir). Steroids only if needed for fibrosis 2.History of pulmonary fibrosis/left-sided pulmonary scarring/left-sided chest pain:? Chronic as per the patient.? Not on home oxygen.? Pulmonary consult.? Requested records from [facility]. Patient reports she takes tobramycin nebulizations-month on/month off. 3.History of overactive bladder: Continue home Mirabegron. 4. hLP: continue statin. DVT prophylaxis:? Lovenox need for inapteint : COVID infection- id recommended IV remdesivir 3 days([facility] protocol three days Remdesivir). Quality Stroke Does the patient have a stroke diagnosis?: No VTE Prior VTE?: No VTE Risk Level:: Medical - moderate - high VTE Device Contraindication: Treatment Not Indicated VTE Drug Contraindication: N/A - Med Ordered
--- NOTE | 2021-11-28 09:01 | PM.CNPUL ---
History of Present Illness History of Present Illness Consult date: 11/28/21 Requesting physician: Marlon Hoffman Chief complaint: COVID PNA Narrative: 76-year-old lady, with remote history of treated pulmonary tuberculosis, chronic left-sided lung fibrosis, followed by Dr. 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 Patient has recently been treated with a 2 week course of Levaquin and systemic glucocorticoids. On admission her COVID-19 PCR was positive. She was saturating 89-93% on room air. Patient was started on dexamethasone, baricitinib, and remdesivir. This morning she states that her dyspnea is better. her CT chest showed what appears to be chronic fibrotic changes with hypoplastic left lung. Review of Systems Constitutional: Constitutional: Denies daytime sleepiness, Denies excessive sweating, Denies fatigue, Denies fever(s), Denies lethargy, Denies malaise, Denies night sweats, Denies snoring and Denies weight loss Eyes: Eyes: Denies blurry vision and Denies itchy eyes ENT: Denies nasal congestion, Denies post nasal drip, Denies sinus pain, Denies sinus pressure and Denies other ( Thrush) Cardiovascular: Cardiovascular: Denies chest pain, Denies pedal edema, Denies dyspnea, Reports dyspnea on exertion, Denies orthopnea and Denies paroxysmal nocturnal dyspnea Respiratory: Respiratory: Denies cough, Denies hemoptysis, Denies excessive phlegm production, Denies dyspnea, Reports dyspnea on exertion, Denies snoring and Denies wheezing Gastrointestinal: Gastrointestinal: Denies abdominal pain and Denies heartburn Musculoskeletal: Musculoskeletal: Denies myalgias, Denies arthralgias and Denies joint swelling Integumentary/Breasts: Skin/Breast: Denies rash Neurologic: Denies memory loss and Denies seizure-like activity Psychiatric: Psychiatric: Denies abnormal sleep pattern, Denies anxiety and Denies memory loss Endocrine: Endocrine: Denies excessive sweating, Denies fatigue and Denies heat intolerance Hematologic/Lymphatic: Hematologic/Lymphatic: Denies easy bruising Allergic/Immunologic: Allergic/Immunologic: Denies itchy eyes, Denies seasonal rhinorrhea and Denies wheezing PMFSH Family History Family History Mother HTN (hypertension) Family/Other HTN (hypertension) Social History Social History Alcohol intake: never Patient Tobacco Use Status: Never used Tobacco Use of substances other than those prescribed or required for medical reasons: No Advance Directives: No Advance Directives Information Provided: No Meds Allergies Allergy/AdvReac Type Severity Reaction Status Date / Time Sulfa (Sulfonamide Allergy Intermediate Rash Verified 11/27/21 17:04 Antibiotics) Active Medications: Current Medications Acetaminophen (Acetaminophen 325 Mg Tablet) 650 mg PO Q6H PRN PRN Reason: Pain, Mild (Pain Scale 1-3) Atorvastatin Calcium (Atorvastatin Calcium 10 Mg Tablet) 10 mg PO DAILY [facility] Last Admin: 11/28/21 07:52 Dose: 10 mg Documented by: Baricitinib (Baricitinib 2 Mg Tablet) 4 mg PO DAILY [facility] Stop: 12/10/21 09:01 Last Admin: 11/27/21 21:35 Dose: 4 mg Documented by: Calcium Carbonate/Cholecalciferol (Calcium + Vitamin D 250 Mg Tablet) 500 mg PO BID [facility] Dexamethasone Sodium Phosphate (Dexamethasone Sod Phosphate 4 Mg/Ml Vial) 6 mg IVPUSH DAILY [facility] Last Admin: 11/28/21 07:52 Dose: 6 mg Documented by: Donepezil HCl (Donepezil Hcl 5 Mg Tablet) 5 mg PO DAILY [facility] Last Admin: 11/28/21 07:55 Dose: 5 mg Documented by: Enoxaparin Sodium (Enoxaparin Sodium 40 Mg/0.4 Ml Syringe) 40 mg SUBCUT Q24H [facility] Last Admin: 11/27/21 23:48 Dose: Not Given Documented by: Fluticasone/Vilanterol (Fluticasone/Vilanterol 100/25 Blst.W.Dev) 1 puff INHALE RDAILY [facility] Remdesivir 100 mg/ Sodium (Chloride) 230 mls @ 115 mls/hr IV Q24H [facility] Stop: 12/01/21 22:59 Piperacillin Sod/Tazobactam (Sod 3.375 gm/ Sodium Chloride) 50 mls @ 100 mls/hr IV Q6H [facility] Last Admin: 11/28/21 07:51 Dose: 100 mls/hr Documented by: Loratadine (Loratadine 10 Mg Tablet) 10 mg PO BEDTIME [facility] Melatonin (Melatonin 3 Mg Tablet) 6 mg PO BEDTIME PRN PRN Reason: Insomnia Mirabegron (Mirabegron 50 Mg Tab.Er.24h) 50 mg PO DAILY [facility] Last Admin: 11/28/21 07:52 Dose: 50 mg Documented by: Morphine Sulfate (Morphine Sulfate 4 Mg/Ml Cartridge) 1 mg IVPUSH Q4H PRN; Protocol PRN Reason: Pain, SOB Multivitamins/Minerals (Multivitamin With Minerals Tablet) 1 tab PO DAILY [facility] Non-Formulary Medication (Tolterodine) 1 tab PO BID [facility] Omeprazole (Omeprazole 20 Mg Capsule.Dr) 20 mg PO DAILY [facility] Last Admin: 11/28/21 07:52 Dose: 20 mg Documented by: Sertraline HCl (Sertraline Hcl 100 Mg Tablet) 100 mg PO BEDTIME [facility] Sodium Chloride (0.9 % Sodium Chloride Flush 3 Ml Syringe) 3 ml IVFLUSH QSHIFT [facility] Last Admin: 11/28/21 07:52 Dose: 3 ml Documented by: Tobramycin Sulfate (Tobramycin Sulfate 80 Mg/2 Ml Vial) 300 mg INHALE RBID [facility] Tolterodine Tartrate (Tolterodine Tartrate La 2 Mg Cap.Er.24h) 2 mg PO DAILY [facility] Triamcinolone Acetonide (Triamcinolone Acet 0.1 % Cream 15 Gm Tube) 1 appl TOPICAL DAILY [facility]; Protocol Home Medications Medication Instructions Recorded Confirmed Last Taken Type mucus clearing device 11/22/21 Unknown History mucus clearing device (Aerobika 11/22/21 Unknown History Oscillating PEP Systm) omeprazole 20 mg capsule,delayed 20 mg PO DAILY 11/22/21 11/27/21 11/27/21 History release sertraline 100 mg tablet 100 mg PO BEDTIME 11/22/21 11/27/21 11/26/21 History tobramycin 300 mg/5 mL in 0.225 % 300 mg INHALATION Q12H 11/22/21 11/27/21 11/27/21 History sodium chloride for nebulization atorvastatin 10 mg tablet 1 tab PO DAILY 11/27/21 11/27/21 11/27/21 History calcium carbonate 600 mg-vitamin 1 tab PO BID 11/27/21 11/27/21 11/27/21 History D3 5 mcg (200 unit) tablet cetirizine 10 mg tablet 1 tab PO BEDTIME 11/27/21 11/27/21 11/26/21 History donepezil 5 mg tablet 5 mg PO DAILY 11/27/21 11/27/21 11/27/21 History fluticasone 250 mcg-salmeterol 50 1 puff INHALATION Q12H 11/27/21 11/27/21 11/27/21 History mcg/dose blistr powdr for inhalation (Wixela Inhub) levalbuterol HCl 0.31 mg/3 mL 1 amp INHALATION Q4H PRN 11/27/21 11/27/21 Unknown History solution for nebulization mirabegron 50 mg tablet,extended 1 tab PO DAILY 11/27/21 11/27/21 Unknown History release 24 hr (Myrbetriq) tolterodine 1 mg tablet 1 tab PO BID 11/27/21 11/27/21 Unknown History triamcinolone acetonide 0.1 % 1 appl TOPICAL DAILY 11/27/21 11/27/21 Unknown History topical cream vitamin A-vitamin C-vit E-min 1 tab PO DAILY 11/27/21 11/27/21 11/27/21 History tablet Physical Exam Vital Signs: Vital Signs: Last Vital Signs Temp 98.2 F 11/28/21 04:24 Pulse 59 11/28/21 04:24 Resp 20 11/28/21 04:24 BP 130/68 11/28/21 04:24 Pulse Ox 92 11/28/21 04:24 BMI result Body Mass Index 19.3 Const: General: no acute distress and alert Nutritional Appearance: not obese Orientation/consciousness: Other orientation findings ( oriented) HEENT: Head: Yes atraumatic Mouth: no other ( thrush) Throat: No postnasal drainage Eyes: General: appearance normal, both eyes and all related structures Sclerae: sclerae normal EOM: EOMs intact bilaterally Neck: Neck: Yes supple Lymphatic: no lymphadenopathy noted Resp: Effort & Inspection: normal respiratory effort and no use of accessory muscles Auscultation: clear to auscultation bilaterally Cardio: Rate: regular rate Rhythm: regular rhythm Heart sounds: no gallops, no murmurs and no rubs GI: Palpation (GI): Soft to palpation and Other GI palpation findings present ( nontender) Skin: General skin exam: other ( warm) Rashes: no rashes Extrem: General: No clubbing, No cyanosis and No edema Results Laboratory Findings CBC and BMP: 11/28/21 07:31 11/28/21 07:31 ABG, PT/INR, D-dimer: PT/INR, D-dimer PT 12.1 SEC (9.9-13.0) 11/27/21 17:39 INR 1.1 (0.9-1.1) 11/27/21 17:39 Abnormal lab findings: Abnormal Labs 11/27/21 11/27/21 11/27/21 17:39 17:39 17:40 WBC RBC 4.15 L Hgb 10.6 L Hct 34.1 L MCH 25.5 L RDW 16.9 H Immature Gran % (Auto) B-Natriuretic Peptide 113 H SARS-CoV-2 RNA (RT-PCR) POSITIVE A 11/28/21 07:31 WBC 4.4 L RBC Hgb 11.1 L Hct 35.6 L MCH 25.5 L RDW 17.0 H Immature Gran % (Auto) 0.5 H B-Natriuretic Peptide SARS-CoV-2 RNA (RT-PCR) Assessment and Plan (1) COVID-19: Status: Acute (2) Pulmonary fibrosis: Status: Acute Plan Impression: 76-year-old lady with chronic pulmonary scarring and hypoplastic left lung, 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 Now maintained normoxemia on room air. Recommendations: As patient is normoxemic on room air, but does have underlying lung disease current [facility] recommended treatment would be remdesivir for total of 4 days, or until hospital discharge. Procedures Date of Service Date of Service: 11/28/21
[2021-11-28] MEDS: Tobramycin Sulfate 80 MG/2 ML VIAL 300 MG INHALE ×3 (09:02→20:45)
[2021-11-28 09:03] VITALS: PULSE 77; RESP 15; O2SAT 95
--- NOTE | 2021-11-28 09:51 | MHC.CM.PN ---
Attempted to meet with patient in regards to discharge planning. Provider currently with patient. Attempted to speak with patient's daughter, Jeny, via telephone at [phone]. Left message requesting a return telephone call and explaining IMM would be mailed. Case management assessment completed using medical record. Patient is active with [facility]. She has 7 [employer] hours a week through [facility]. She received Pfizer vaccines on 09/01/20 and 09/21/20. Received a Moderna booster on 05/29/21. Patient tested positive for Covid on 11/27/21. Copy of HCP requested from [facility]. Continue to monitor for d/c needs.
[2021-11-28] MEDS: Tolterodine Tartrate LA 2 MG CAP.ER.24H PO (10:19)
[2021-11-28] MEDS: Calcium + Vitamin D 250 MG TABLET 500 MG PO ×2 (10:19→21:28)
[2021-11-28] MEDS: Multivitamin TABLET 1 TAB PO (10:19)
--- NOTE | 2021-11-28 12:19 | PC.NURSE ---
patient a&ox3, no c/o pain or discomfort, pt requesting warm blanket-applied per request, neurosurgery spine physician sinus wade 60s, vss, pt requesting lights to be turned off so she could sleep, call gonzalez within reach, will continue to monitor.
--- NOTE | 2021-11-28 14:32 | PC.NURSE ---
patient a&ox3, pts daughter called and was notified that she was unable to visit- daughter was upset as she is the primary caregiver who has taken care of her mother since she began getting sick 2 weeks ago and was in the ed with her mother. this nurse spoke with our ed director corbin about the situation, the daughter was notified that we only allow visitors for end of life, she was asked if she could bring a phone for her mother to call her on and offered facetime. daughter states she is planning on bringing in food as well as her mothers cell phone and author's agent. the patient was notified that her daughter was bringing in a cell phone for her. patient was assisted oob to commode, ate lunch, currently has no c/o pain or discomfort, call gonzalez is within reach, will continue to monitor.
--- NOTE | 2021-11-28 15:04 | P.CNID_ITS ---
History of Present Illness Data of Consult Service Date: 11/28/21 Requesting physician: Dl Nash Primary Care Provider: Blaise Armenta MD [facility] Reason for consult: shortness of breath,cough She presents with cough and shortness of breath worse over last two weeks. She had been visiting family who were ill. She has positive COVID test Review of Systems Review of Systems: Yes all other systems are reviewed and are negative [facility] Family History Family History Mother HTN (hypertension) Family/Other HTN (hypertension) Family history: reviewed and not pertinent Social History Social History Alcohol intake: never Patient Tobacco Use Status: Never used Tobacco Use of substances other than those prescribed or required for medical reasons: No Advance Directives: No Advance Directives Information Provided: No service: No Current occupational status: retired Meds Allergies Allergy/AdvReac Type Severity Reaction Status Date / Time Sulfa (Sulfonamide Allergy Intermediate Rash Verified 11/27/21 17:04 Antibiotics) Active Medications: Current Medications Acetaminophen (Acetaminophen 325 Mg Tablet) 650 mg PO Q6H PRN PRN Reason: Pain, Mild (Pain Scale 1-3) Atorvastatin Calcium (Atorvastatin Calcium 10 Mg Tablet) 10 mg PO DAILY COUNTS INCLUDE 234 BEDS AT THE [facility] Last Admin: 11/28/21 07:52 Dose: 10 mg Documented by: Calcium Carbonate/Cholecalciferol (Calcium + Vitamin D 250 Mg Tablet) 500 mg PO BID COUNTS INCLUDE 234 BEDS AT THE [facility] Last Admin: 11/28/21 10:19 Dose: 500 mg Documented by: Dexamethasone Sodium Phosphate (Dexamethasone Sod Phosphate 4 Mg/Ml Vial) 6 mg IVPUSH DAILY COUNTS INCLUDE 234 BEDS AT THE [facility] Last Admin: 11/28/21 07:52 Dose: 6 mg Documented by: Donepezil HCl (Donepezil Hcl 5 Mg Tablet) 5 mg PO DAILY COUNTS INCLUDE 234 BEDS AT THE [facility] Last Admin: 11/28/21 07:55 Dose: 5 mg Documented by: Enoxaparin Sodium (Enoxaparin Sodium 40 Mg/0.4 Ml Syringe) 40 mg SUBCUT Q24H COUNTS INCLUDE 234 BEDS AT THE [facility] Last Admin: 11/27/21 23:48 Dose: Not Given Documented by: Fluticasone/Vilanterol (Fluticasone/Vilanterol 100/25 Blst.W.Dev) 1 puff INHALE RDAILY COUNTS INCLUDE 234 BEDS AT THE [facility] Remdesivir 100 mg/ Sodium (Chloride) 230 mls @ 115 mls/hr IV Q24H [facility] Stop: 12/01/21 22:59 Piperacillin Sod/Tazobactam (Sod 3.375 gm/ Sodium Chloride) 50 mls @ 100 mls/hr IV Q6H COUNTS INCLUDE 234 BEDS AT THE [facility] Last Admin: 11/28/21 13:48 Dose: 100 mls/hr Documented by: Loratadine (Loratadine 10 Mg Tablet) 10 mg PO BEDTIME [facility] Melatonin (Melatonin 3 Mg Tablet) 6 mg PO BEDTIME PRN PRN Reason: Insomnia Mirabegron (Mirabegron 50 Mg Tab.Er.24h) 50 mg PO DAILY COUNTS INCLUDE 234 BEDS AT THE [facility] Last Admin: 11/28/21 07:52 Dose: 50 mg Documented by: Morphine Sulfate (Morphine Sulfate 4 Mg/Ml Cartridge) 1 mg IVPUSH Q4H PRN; Protocol PRN Reason: Pain, SOB Multivitamins/Vitamin C (Multivitamin Tablet) 1 tab PO DAILY COUNTS INCLUDE 234 BEDS AT THE [facility] Last Admin: 11/28/21 10:19 Dose: 1 tab Documented by: Non-Formulary Medication (Tolterodine) 1 tab PO BID COUNTS INCLUDE 234 BEDS AT THE [facility] Omeprazole (Omeprazole 20 Mg Capsule.Dr) 20 mg PO DAILY COUNTS INCLUDE 234 BEDS AT THE [facility] Last Admin: 11/28/21 07:52 Dose: 20 mg Documented by: Sertraline HCl (Sertraline Hcl 100 Mg Tablet) 100 mg PO BEDTIME COUNTS INCLUDE 234 BEDS AT THE [facility] Sodium Chloride (0.9 % Sodium Chloride Flush 3 Ml Syringe) 3 ml IVFLUSH QSHIFT COUNTS INCLUDE 234 BEDS AT THE [facility] Last Admin: 11/28/21 07:52 Dose: 3 ml Documented by: Tobramycin Sulfate (Tobramycin Sulfate 80 Mg/2 Ml Vial) 300 mg INHALE RBID COUNTS INCLUDE 234 BEDS AT THE [facility] Last Admin: 11/28/21 09:03 Dose: 300 mg Documented by: Tolterodine Tartrate (Tolterodine Tartrate La 2 Mg Cap.Er.24h) 2 mg PO DAILY COUNTS INCLUDE 234 BEDS AT THE [facility] Last Admin: 11/28/21 10:19 Dose: 2 mg Documented by: Triamcinolone Acetonide (Triamcinolone Acet 0.1 % Cream 15 Gm Tube) 1 appl TOPICAL DAILY COUNTS INCLUDE 234 BEDS AT THE [facility]; Protocol Last Admin: 11/28/21 10:20 Dose: Not Given Documented by: Home Medications Medication Instructions Recorded Confirmed Last Taken Type mucus clearing device 11/22/21 Unknown History mucus clearing device (Aerobika 11/22/21 Unknown History Oscillating PEP Systm) omeprazole 20 mg capsule,delayed 20 mg PO DAILY 11/22/21 11/27/21 11/27/21 History release sertraline 100 mg tablet 100 mg PO BEDTIME 11/22/21 11/27/21 11/26/21 History tobramycin 300 mg/5 mL in 0.225 % 300 mg INHALATION Q12H 11/22/21 11/27/21 11/27/21 History sodium chloride for nebulization atorvastatin 10 mg tablet 1 tab PO DAILY 11/27/21 11/27/21 11/27/21 History calcium carbonate 600 mg-vitamin 1 tab PO BID 11/27/21 11/27/21 11/27/21 History D3 5 mcg (200 unit) tablet cetirizine 10 mg tablet 1 tab PO BEDTIME 11/27/21 11/27/21 11/26/21 History donepezil 5 mg tablet 5 mg PO DAILY 11/27/21 11/27/21 11/27/21 History fluticasone 250 mcg-salmeterol 50 1 puff INHALATION Q12H 11/27/21 11/27/21 11/27/21 History mcg/dose blistr powdr for inhalation ([place]ae Inhub) levalbuterol HCl 0.31 mg/3 mL 1 amp INHALATION Q4H PRN 11/27/21 11/27/21 Unknown History solution for nebulization mirabegron 50 mg tablet,extended 1 tab PO DAILY 11/27/21 11/27/21 Unknown History release 24 hr (Myrbetriq) tolterodine 1 mg tablet 1 tab PO BID 11/27/21 11/27/21 Unknown History triamcinolone acetonide 0.1 % 1 appl TOPICAL DAILY 11/27/21 11/27/21 Unknown History topical cream vitamin A-vitamin C-vit E-min 1 tab PO DAILY 11/27/21 11/27/21 11/27/21 History tablet Physical Exam Vital Signs: Vital Signs: Last Vital Signs Temp 98.2 F 11/28/21 04:24 Pulse 77 11/28/21 09:03 Resp 15 11/28/21 09:03 BP 130/68 11/28/21 04:24 Pulse Ox 92 11/28/21 04:24 BMI result Body Mass Index 19.3 Const: General: no acute distress Eyes: General: appearance normal, both eyes and all related structures Resp: Effort & Inspection: normal respiratory effort Cardio: Rate: regular rate Rhythm: regular rhythm GI: Palpation (GI): nontender Extrem: General: Yes normal to inspection Results Labs CBC & Chem 7: 11/28/21 07:31 11/28/21 07:31 Labs: Short CBC 11/27/21 11/28/21 Range/Units 17:39 07:31 WBC 8.3 4.4 L (4.8-10.8) X10*3/uL Hgb 10.6 L 11.1 L (12.0-16.0) g/dl Hct 34.1 L 35.6 L (37.0-47.0) % Plt Count 214 223 (160-400) X10*3/uL BMP 11/27/21 11/28/21 17:39 07:31 Sodium 135 138 Potassium 4.6 4.6 Chloride 101 104 Carbon Dioxide 26 27 BUN 16 14 Creatinine 0.62 0.60 Calcium 9.0 9.0 Liver Function 11/27/21 Range/Units 17:39 Total Bilirubin < 0.2 (0.0-1.0) mg/dL AST 25 (5-31) U/L ALT 16 (0-31) U/L Alkaline Phosphatase 66 (39-117) U/L Albumin 3.5 (3.5-5.0) g/dL Urine 11/27/21 Range/Units 21:56 Urine Color YELLOW Urine Appearance CLEAR Urine pH 6.0 (5.0-8.0) Ur Specific [place] <= 1.005 (1.005-1.025) Urine Protein NEG (NEG-TRACE) MG/DL Urine Glucose (UA) NEG (NEG) MG/DL Assessment and Plan (1) Pulmonary fibrosis: Status: Acute She sees Pulmonary and has recurrent Pseudomonas infection and has cycling tobramycin and Levaquin. She has usual pattern of sputum reported (2) COVID-19: Status: Acute Room air and risk for severe disease. [facility] protocol three days Remdesivir Steroids only if needed for fibrosis No baricitinib now since no decompensation (on room air) (3) Acute hypoxemic respiratory failure due to COVID-19: Status: Acute
--- NOTE | 2021-11-28 15:10 | PM.EVENT ---
Event Note Date of Service: 11/28/21 Event Note: no need piperacillin/tazobactam at this time no acute bacterial pneumonia
[2021-11-28 15:39] VITALS: BP 134/62; PULSE 72; RESP 17; TEMP 36.4; O2SAT 94
[2021-11-28 20:46] VITALS: PULSE 78; RESP 18; O2SAT 95
--- NOTE | 2021-11-28 20:50 | PC.NURSE ---
report given, will notify techs to bring pt upstairs
[2021-11-28] MEDS: Sertraline HCL 100 MG TABLET PO (21:28)
[2021-11-28] MEDS: Loratadine 10 MG TABLET PO (21:28)
[2021-11-28] MEDS: hydrOXYzine HCL 25 MG TABLET PO (21:28)
[2021-11-28] MEDS: Remdesivir 100 MG in 0.9 % Sodium Chloride 230 ML 115 MG IV (21:29)
[2021-11-28 21:32] VITALS: BP 141/81; PULSE 68; RESP 18; TEMP 36.8; O2SAT 94
[2021-11-28] MEDS: Enoxaparin Sodium 40 MG/0.4 ML SYRINGE SUBCUT (23:18)
[2021-11-29] VITALS: BP 144/82; PULSE 56; RESP 19; O2SAT 98
[2021-11-29 04:00] VITALS: PULSE 66; RESP 17
[2021-11-29] MEDS: Tobramycin Sulfate 80 MG/2 ML VIAL 300 MG INHALE ×3 (07:50→20:21)
[2021-11-29 07:51] VITALS: PULSE 56; RESP 15; O2SAT 95
[2021-11-29 08:24] LABS: Hematocrit 33.1 % (37.0-47.0); Hemoglobin 10.4 g/dl (12.0-16.0); Mean Corpuscular HGB Conc 31.4 g/dl (31.0-35.0); Mean Corpuscular Hemoglobin 25.6 pg (27.0-33.0); Mean Corpuscular Volume 81.3 fL (80.0-98.0); Mean Platelet Volume 10.4 fL (9.4-12.3); Platelet Count 216 X10*3/uL (160-400); Red Blood Count 4.07 X10*6/uL (4.20-5.50)
[2021-11-29 08:40] LABS: Anion Gap 11 (12-20); Blood Urea Nitrogen 16 mg/dL (9-16); Calcium 8.9 mg/dL (8.4-10.2); Carbon Dioxide 25 mmol/L (22-29); Chloride 105 mmol/L (96-108); Creatinine Clr Calc Pharmacy 62.1; Estimated Glomerular Filt Rate > 60; Glucose Random 72 mg/dL (60-115); Potassium 4.3 mmol/L (3.3-5.1); Sodium 137 mmol/L (135-145)
[2021-11-29] MEDS: dexAMETHasone sod phosphate 4 MG/ML VIAL 6 MG IVPUSH (10:49)
[2021-11-29] MEDS: Atorvastatin Calcium 10 MG TABLET PO (10:50)
[2021-11-29] MEDS: Multivitamin TABLET 1 TAB PO (10:50)
[2021-11-29] MEDS: Donepezil HCl 5 MG TABLET PO (10:50)
[2021-11-29] MEDS: Mirabegron 50 MG TAB.ER.24H PO (10:50)
[2021-11-29] MEDS: Tolterodine Tartrate LA 2 MG CAP.ER.24H PO (10:50)
[2021-11-29] MEDS: Calcium + Vitamin D 250 MG TABLET 500 MG PO ×2 (10:50→21:06)
[2021-11-29] MEDS: Omeprazole 20 MG CAPSULE.DR PO (10:50)
[2021-11-29 11:16] VITALS: BP 131/61; PULSE 57; RESP 18; TEMP 36.3; O2SAT 94
--- NOTE | 2021-11-29 12:31 | PC.NURSE ---
Pt is resting in hospital bed. confused at times. Pt calling daughter at home telling daughter that staff has not checked on her. Staff has been in and out of pts room multiple times per hour. Pt educated on clustering care and items due to her isolation status, and exposure risk. pt verbalized understanding. Pt continues to press callbell and seek help multiple times throughout an hour despite constant education and redirection. Pt pleasant and cooperative with care. Independent in the room. uses the bedside commode appropriately. lungs sound diminished. pt with productive cough and requesting hot tea. tea provided. pt with no complaints of pain. VSS. callbell and belongings within reach.
--- NOTE | 2021-11-29 14:40 | P.PNIM_ITS ---
Subjective Subjective Date of Service: 11/29/21 Interval History: cc: weakness interval history: improved Cardiovascular Cardiovascular: Reports no additional cardiovascular complaints Respiratory Respiratory: Reports no additional respiratory complaints Physical Exam Vital Signs: Vital Signs: Last Vital Signs Temp 97.4 F 11/29/21 11:16 Pulse 57 11/29/21 11:16 Resp 18 11/29/21 11:16 BP 131/61 11/29/21 11:16 Pulse Ox 94 11/29/21 11:16 BMI result Body Mass Index 19.3 General: AO X 3, no acute distress Resp: diminished bilateral, no accessory muscles used CVS: S1,S2,RRR GI: soft, non tender, non distended Neuro: motor grossly intact, alert Psych: appropriate affect, appropriate insight Objective Data Active Medications Acetaminophen (Acetaminophen 325 Mg Tablet) 650 mg PO Q6H PRN PRN Reason: Pain, Mild (Pain Scale 1-3) Atorvastatin Calcium (Atorvastatin Calcium 10 Mg Tablet) 10 mg PO DAILY [facility] Last Admin: 11/29/21 10:50 Dose: 10 mg Documented by: NOA Calcium Carbonate/Cholecalciferol (Calcium + Vitamin D 250 Mg Tablet) 500 mg PO BID [facility] Last Admin: 11/29/21 10:50 Dose: 500 mg Documented by: NOA Dexamethasone Sodium Phosphate (Dexamethasone Sod Phosphate 4 Mg/Ml Vial) 6 mg IVPUSH DAILY [facility] Last Admin: 11/29/21 10:49 Dose: 6 mg Documented by: NOA Donepezil HCl (Donepezil Hcl 5 Mg Tablet) 5 mg PO DAILY [facility] Last Admin: 11/29/21 10:50 Dose: 5 mg Documented by: NOA Enoxaparin Sodium (Enoxaparin Sodium 40 Mg/0.4 Ml Syringe) 40 mg SUBCUT Q24H [facility] Last Admin: 11/28/21 23:18 Dose: 40 mg Documented by: JUANI Fluticasone/Vilanterol (Fluticasone/Vilanterol 100/25 Blst.W.Dev) 1 puff INHALE RDAILY [facility] Last Admin: 11/29/21 08:03 Dose: Not Given Documented by: NINOSKA Non-Admin Reason: Med Not Available Remdesivir 100 mg/ Sodium (Chloride) 230 mls @ 115 mls/hr IV Q24H [facility] Stop: 12/01/21 22:59 Last Admin: 11/28/21 21:29 Dose: 115 mls/hr Documented by: JACK Loratadine (Loratadine 10 Mg Tablet) 10 mg PO BEDTIME [facility] Last Admin: 11/28/21 21:28 Dose: 10 mg Documented by: JACK Melatonin (Melatonin 3 Mg Tablet) 6 mg PO BEDTIME PRN PRN Reason: Insomnia Mirabegron (Mirabegron 50 Mg Tab.Er.24h) 50 mg PO DAILY [facility] Last Admin: 11/29/21 10:50 Dose: 50 mg Documented by: NOA Morphine Sulfate (Morphine Sulfate 4 Mg/Ml Cartridge) 1 mg IVPUSH Q4H PRN; Protocol PRN Reason: Pain, SOB Multivitamins/Vitamin C (Multivitamin Tablet) 1 tab PO DAILY [facility] Last Admin: 11/29/21 10:50 Dose: 1 tab Documented by: NOA Non-Formulary Medication (Tolterodine) 1 tab PO BID [facility] Last Admin: 11/29/21 10:50 Dose: 1 tab Documented by: NOA Omeprazole (Omeprazole 20 Mg Capsule.Dr) 20 mg PO DAILY [facility] Last Admin: 11/29/21 10:50 Dose: 20 mg Documented by: NOA Sertraline HCl (Sertraline Hcl 100 Mg Tablet) 100 mg PO BEDTIME [facility] Last Admin: 11/28/21 21:28 Dose: 100 mg Documented by: JACK Sodium Chloride (0.9 % Sodium Chloride Flush 3 Ml Syringe) 3 ml IVFLUSH QSHIFT [facility] Last Admin: 11/29/21 11:10 Dose: Not Given Documented by: NOA Non-Admin Reason: Med Not Available Tobramycin Sulfate (Tobramycin Sulfate 80 Mg/2 Ml Vial) 300 mg INHALE RBID [facility] Last Admin: 11/29/21 08:03 Dose: 300 mg Documented by: NINOSKA Tolterodine Tartrate (Tolterodine Tartrate La 2 Mg Cap.Er.24h) 2 mg PO DAILY [facility] Last Admin: 11/29/21 10:50 Dose: 2 mg Documented by: NOA Triamcinolone Acetonide (Triamcinolone Acet 0.1 % Cream 15 Gm Tube) 1 appl TOPICAL DAILY [facility]; Protocol Last Admin: 11/29/21 11:10 Dose: Not Given Documented by: NOA Non-Admin Reason: Med Not Available Labs CBC & Chem 7: 11/29/21 08:05 11/29/21 08:05 Labs: Laboratory Results - last 24 hr 11/29/21 11/29/21 08:05 08:05 MCV 81.3 MCH 25.6 L MCHC 31.4 RDW 17.0 H Plt Count 216 MPV 10.4 Absolute Nucleated RBC 0.000 Nucleated RBC % (auto) 0.0 Anion Gap 11 L Estim Creat Clear Calc 62.1 Estimated GFR > 60 Random Glucose 72 Calcium 8.9 Microbiology Microbiology Results: Microbiology 11/27/21 18:05 Blood Culture - Preliminary Blood - Venous No growth after 24 hours. 11/27/21 17:39 Blood Culture - Preliminary Blood - Venous No growth after 24 hours. Assessment and Plan (1) COVID-19: Status: Acute (2) Pulmonary fibrosis: Status: Acute Plan 76-year-old female with a past medical history of hyperlipidemia, history of pulmonary tuberculosis, left-sided lung fibrosis/chronic scarring; history of recurrent Pseudomonas infections on alternate month on month off tobramycin nebulizer inhalations; presented to the hospital with a chief complaint of cough and congestion, whitish sputum production, low-grade fevers.? Noted to have COVID-[address] chest showed no evidence of pulmonary embolism but noted left-sided parenchymal scarring COVID-19 Infection:Also initially concern for pneumonia.? Patient recently finished 2 week course of Levaquin.? Known history of recurrent Pseudomonas infections.? cotninue remdisivir per protocol History of pulmonary fibrosis/left-sided pulmonary scarring/left-sided chest pain:? Chronic as per the patient.? Not on home oxygen.? Pulmonary consult.? Requested records from . Patient reports she takes tobramycin nebulizations-month on/month off. .History of overactive bladder: Continue home Mirabegron. hLP: continue statin. DVT prophylaxis:? Lovenox need for inapteint : COVID infection- id recommended IV remdesivir 3 days([facility] protocol three days Remdesivir). Quality Stroke Does the patient have a stroke diagnosis?: No VTE Prior VTE?: No VTE Risk Level:: Medical - moderate - high VTE Device Contraindication: Treatment Not Indicated VTE Drug Contraindication: N/A - Med Ordered
[2021-11-29 18:27] LABS: Alanine Aminotransferase 20 U/L (0-31); Albumin Level 3.7 g/dL (3.5-5.0); Alkaline Phosphatase 68 U/L (39-117); Aspartate Amino Transferase 30 U/L (5-31); Bilirubin Direct < 0.2 mg/dL (0.0-0.5); Bilirubin Total 0.3 mg/dL (0.0-1.0); Total Protein 7.2 g/dL (6.5-8.0)
--- NOTE | 2021-11-29 20:00 | PC.NURSE ---
pt noncompliant with surveillance monitor despite being reminded continues to pull leads off
[2021-11-29 20:22] VITALS: PULSE 55; RESP 18; O2SAT 95
[2021-11-29] MEDS: Melatonin 3 MG TABLET 6 MG PO (21:05)
[2021-11-29] MEDS: Loratadine 10 MG TABLET PO (21:05)
[2021-11-29] MEDS: Sertraline HCL 100 MG TABLET PO (21:05)
[2021-11-29] MEDS: Remdesivir 100 MG in 0.9 % Sodium Chloride 230 ML 115 MG IV (21:07)
[2021-11-29] MEDS: Enoxaparin Sodium 40 MG/0.4 ML SYRINGE SUBCUT (22:56)
[2021-11-29] MEDS: 0.9 % Sodium Chloride Flush 3 ML SYRINGE IVFLUSH (23:03)
[2021-11-29 23:50] VITALS: BP 127/54; PULSE 67; RESP 16; TEMP 36.9; O2SAT 95
[2021-11-30] VITALS (7 sets, daily range): BP systolic 132–157; BP diastolic 57–80; PULSE 58–62; RESP 14–18; TEMP 36.3–37.2; O2SAT 92–96
[2021-11-30] MEDS: 0.9 % Sodium Chloride Flush 3 ML SYRINGE IVFLUSH ×3 (00:37→16:31)
--- NOTE | 2021-11-30 03:26 | PC.NURSE ---
RESTFULA..DOZING OVERNIGHT..EASILY AROUSED..ALERT..ORIENTED X3..RESPIRATIONS EASY ON ROOM AIR...REMAINS NON-COMPLIANT WITH TELEMETRY MONITORING..DENIES DISCOMFORT...DENIES/OFFERS NO COMPLAINTS
[2021-11-30] MEDS: Tobramycin Sulfate 80 MG/2 ML VIAL 300 MG INHALE ×2 (08:03→20:25)
[2021-11-30] MEDS: dexAMETHasone sod phosphate 4 MG/ML VIAL 6 MG IVPUSH (10:08)
[2021-11-30] MEDS: Tolterodine Tartrate LA 2 MG CAP.ER.24H PO (10:11)
[2021-11-30] MEDS: Omeprazole 20 MG CAPSULE.DR PO (10:11)
[2021-11-30] MEDS: Mirabegron 50 MG TAB.ER.24H PO (10:11)
[2021-11-30] MEDS: Calcium + Vitamin D 250 MG TABLET 500 MG PO ×2 (10:11→20:15)
[2021-11-30] MEDS: Atorvastatin Calcium 10 MG TABLET PO (10:11)
[2021-11-30] MEDS: Multivitamin TABLET 1 TAB PO (10:11)
[2021-11-30] MEDS: Donepezil HCl 5 MG TABLET PO (10:11)
--- NOTE | 2021-11-30 10:46 | PC.NURSE ---
Pt alert and oriented, ambulating in room, refusing tele. Report given to [facility] nurse and pt to be transported on tele.
--- NOTE | 2021-11-30 12:20 | PM.DS ---
DS: Providers Provider Date of Service: 11/30/21 Date of admission: 11/27/21 23:19 Primary care physician: Blaise Armenta MD Consults: 11/27/21 23:15 Consult to Infectious Diseases Routine Consulting Provider: Elsa Dempsey Reason for consultation: covid pna Consult to Pulmonology Routine Consulting Provider: Rajan Steele Reason for consultation: COVID PNA; loss of left lung volume,ipsilateral mediastinal shift DS: Diagnosis Discharge Diagnosis (1) COVID-19: Status: Acute (2) Pulmonary fibrosis: Status: Acute DS: Summary Hospital Course Hospital Course: from initial hpi: Chief Complaint: Generalized weakness 76-year-old female with a past medical history of hyperlipidemia, history of pulmonary tuberculosis, left-sided lung fibrosis/chronic scarring; history of recurrent Pseudomonas infections on alternate month on month off tobramycin nebulizer inhalations; presented to the hospital with a chief complaint of cough and congestion, whitish sputum production, low-grade fevers; reported that symptoms have been going on for the past 2 weeks.? Mentioned that she recently visited [place] after coming back she continued to have the symptoms.? Has home tested for COVID-19 which resulted negative but continued to have low-grade fevers; also mentions mild shortness of breath.? Denies any abdominal discomfort.? Denies any urinary frequency urgency or dysuria.? Denies any nausea vomiting or diarrhea.? Denies any difficulty swallowing.? Mentions that she recently finished a 2 week course of Levaquin; as per the patient's daughter patient takes tobramycin nebulizations month on month of for recurrent Pseudomonas infections.? Also finished a course of prednisone. Also mentions she has chronic left-sided lung fibrosis/scarring and has chronic left-sided chest pain going on for more than few months.? But for the past week she has been having increased pain on the left side which is nagging/Achy. Reports generalized weakness. Review of all other systems is negative except mentioned above ER course: Per ER team patient on presentation noted to be saturating 89% on room air; placed on supplemental oxygen; noted to mild respiratory distress with coarse crackles bilateral lung mane with prolonged expiration; CT chest was done which showed no evidence of pulmonary embolism but noted left-sided pleural thickening/parenchymal scarring; also noted mild right apical parenchymal scarring and pleural thickening-chronic. Patient was empirically given Zosyn, Decadron, remdesivir,% neb.? ER team discussed with Infectious Disease consult. Admitted to the hospital for further management hospital course: Patient was admitted for COVID-19 infection with risk factors of pulmonary fibrosis, left-sided pulmonary scarring, hyperlipidemia, overactive bladder. She was treated with 4 days of remdesivir, she remained off oxygen, she is feeling weak but otherwise improved, no shortness of breath. Patient will be discharged home. Time Spent with Patient Time attestation: Total time spent providing and/or coordinating discharge services: Discharge coordination time: Greater than 30 minutes Quality: Safe Use of Opioids Does Pt have an Active Cancer Diagnosis on the Problem List?: No Quality: Stroke Does the patient have a stroke diagnosis?: No Physical Exam Vital Signs: Vital Signs: Last Vital Signs Temp 97.3 F 11/30/21 12:00 Pulse 59 11/30/21 12:00 Resp 18 11/30/21 12:00 BP 138/75 11/30/21 12:00 Pulse Ox 92 11/30/21 12:00 BMI result Body Mass Index 19.3 General: AO X 3, no acute distress Resp: CTA bilateral, no accessory muscles used CVS: S1,S2,RRR GI: soft, non tender, non distended Neuro: motor grossly intact, alert Psych: appropriate affect, appropriate insight DS: Data Data Completed and Pending Labs on day of discharge: Laboratory Results - last 24 hr 11/29/21 17:50 Total Bilirubin 0.3 Direct Bilirubin < 0.2 AST 30 ALT 20 Alkaline Phosphatase 68 Total Protein 7.2 Albumin 3.7 Preliminary micro results at discharge 11/27/21 18:05 Blood Culture - Preliminary Blood - Venous No growth after 48 hours. 11/27/21 17:39 Blood Culture - Preliminary Blood - Venous No growth after 48 hours. Discharge Plan Discharge Patient Disposition: Home, Self-Care Discharge Diagnosis: covid Referrals: Blaise Armenta MD [Primary Care Provider] - 1 Week Discharge Medications: New Ensure Liquid 1 ea PO TID Qty: 3792 0RF Continued (DME) mucus clearing device Device See Rx Instructions .ROUTE 0RF Rx Instructions: As directed (DME) Aerobika Oscillating PEP Systm Device See Rx Instructions .ROUTE 0RF Rx Instructions: As directed omeprazole 20 mg capsule,delayed release(DR/EC) 20 mg PO DAILY 0RF sertraline 100 mg tablet 100 mg PO BEDTIME 0RF tobramycin in 0.225 % NaCl 300 mg/5 mL solution for nebulization 300 mg inhalation Q12H 0RF fluticasone propion-salmeterol [[place] Inhub] 250-50 mcg/dose blister with device 1 puff inhalation Q12H 0RF atorvastatin 10 mg tablet 1 tab PO DAILY 0RF tolterodine 1 mg tablet 1 tab PO BID 0RF Myrbetriq 50 mg tablet extended release 24 hr 1 tab PO DAILY 0RF calcium carbonate-vitamin D3 600 mg-5 mcg (200 unit) tablet 1 tab PO BID 0RF donepezil 5 mg tablet 5 mg PO DAILY 0RF cetirizine 10 mg tablet 1 tab PO BEDTIME 0RF levalbuterol HCl 0.31 mg/3 mL solution for nebulization 1 amp inhalation Q4H PRN (Reason: wheezing) 0RF vitamin A-vitamin C-vit E-min Tablet 1 tab PO DAILY 0RF triamcinolone acetonide 0.1 % cream 1 appl topical DAILY 0RF Rx Instructions: APPLY TO BACK Discharge Orders: Discharge Order (Routine); Ordered 11/30/21 Ordered By: Kayden Wharton Diet: advance to usual diet Activity on Discharge: As tolerated Stand Alone Forms: Patient Portal Discharge page Care Plan Goals: reocvery Health Concerns: covid Plan of Treatment: symptomatic treatement, ensure Assessment: see above
[2021-11-30] MEDS: Remdesivir 100 MG in 0.9 % Sodium Chloride 230 ML 115 MG IV (16:32)
[2021-11-30] MEDS: Sertraline HCL 100 MG TABLET PO (20:16)
[2021-11-30] MEDS: Loratadine 10 MG TABLET PO (20:16)
== END 2021-11-30 21:48 | disposition home or self-care (01) | DRG 177 ==
LOC: HO.ED 22:29 → HO.EDOVER 23:29 → HO.IMC 11-30 08:12
PROVIDERS: Internal Medicine; Admitting Provider Hospitalist; Emergency Provider Internal Medicine; PCP Internal Medicine; Visit Provider Internal Medicine
DX: U07.1 COVID-19 (principal); J96.01 Acute respiratory failure with hypoxia; J84.10 Pulmonary fibrosis, unspecified; N32.81 Overactive bladder; E78.5 Hyperlipidemia, unspecified; I10 Essential (primary) hypertension; Z86.11 Personal history of tuberculosis; Z88.2 Allergy status to sulfonamides; Z79.51 Long term (current) use of inhaled steroids; Z79.899 Other long term (current) drug therapy
CPT/HCPCS: 0241U; 36415; 71275; 80048; 80053; 80076; 81001; 83605; 83880; 85025; 85027; 85610; 85730; 87040; 93005; 94640; 99285; J0248; J1100; J1650; J2543; J3260; Q9967

== ENCOUNTER → 2022-06-11 13:12 | Outpatient (BNVA) | payer MEDICARE, SELFPAY | PROVIDERS: PCP Family Medicine; Visit Provider Psychiatry & Neurology Neurology | DX: F03.90 Unspecified dementia, unspecified severity, without behavioral disturbance, psychotic disturbance, mood disturbance, and anxiety (principal); R26.9 Unspecified abnormalities of gait and mobility; Z79.899 Other long term (current) drug therapy | CPT/HCPCS: Q3014 ==

== ENCOUNTER 2023-03-21 07:38 | Outpatient (AMB) | payer MEDICARE, SELFPAY ==
--- NOTE | 2023-03-21 07:47 | A.OFFVIS_ITS ---
Intake Vital Signs 03/21/23 07:54 Weight 117 lb BP 112/78 Pulse 71 Pulse Source Pulse Oximeter Pulse Oximetry (%) 96 Oxygen Delivery Method Room Air Intake Visit Reasons: follow up-confirmed Intake Note: Dementia follow up, states has progressed Technical Training Coordinator Required: No Allergies Sulfa (Sulfonamide Antibiotics) Allergy (Unknown, Verified 03/21/23 07:48) Unknown Medication List - Last Reconciled 03/21/23 by Autumn Bethea MD calcium carbonate-vitamin D3 600 mg-5 mcg (200 unit) 1 tab PO BID cetirizine 1 tab PO BEDTIME donepezil 5 mg PO DAILY famotidine 40 mg PO BID fluticasone propion-salmeterol 250-50 mcg/dose (Wixela Inhub) 1 puff inhalation Q12H food supplemt, lactose-reduced (Ensure oral liquid) 1 ea PO TID levalbuterol HCl 1 amp inhalation Q4H PRN lidocaine 5% 1 patch topical DAILY memantine (Namenda XR) 7 mg PO DAILY mirabegron ER (Myrbetriq) 1 tab PO DAILY sertraline 100 mg PO BEDTIME tobramycin in 0.225 % NaCl 300 mg/5 mL 300 mg inhalation Q12H tolterodine 1 tab PO BID triamcinolone acetonide 0.1% 1 appl topical DAILY HPI HPI Comments History of Present Illness Details 77y/o female with dementia comes for follow up. her daughter helps with the history. She had fracture of L2,L3 L4 vertebral body after multiple falls in the past 1 year- had kyphoplasty . . she uses a walker at home.she could not tolerate aricept 10 mg but now on 5 mg qd her short term memory is worse. she also has OCD and showers constantly PFSH Medical History (Updated 03/21/23 @ 08:32 by Autumn Bethea MD) Anxiety Dementia Gait disorder GERD (gastroesophageal reflux disease) OCD (obsessive compulsive disorder) Osteoporosis Urinary urgency Surgical History History of back surgery Family History Mother HTN (hypertension) Family/Other HTN (hypertension) Social History Alcohol intake: never Patient Tobacco Use Status: Never used Tobacco Use of substances other than those prescribed or required for medical reasons: No service: No Current occupational status: retired Review of Systems Neuro Reports confusion Psych Reports confusion Physical Exam Vital Signs: Last Vital Signs Pulse 71 03/21/23 07:54 BP 112/78 03/21/23 07:54 Pulse Ox 96 03/21/23 07:54 Oxygen Delivery Method Room Air 03/21/23 07:54 Const General: cooperative, healthy appearing, comfortable and confusion Nutritional Appearance: average body habitus Orientation/consciousness: confusion Eyes Pupils: Equal, round and reactive pupils present Neuro General: tone normal, moves all extremities, confusion and Unable to assess gait Cranial nerves: Yes Facial sensation intact/muscles of mastication intact, Yes Equal, round and reactive pupils present, Yes Bilaterally intact EOM present, Yes Nystagmus not present, Yes Normal facial strength present, Yes Midline tongue present, Yes Symmetric palate elevation present and Yes Ability to bilaterally elevate shoulders present Cognition (Neuro): abnormal cognition Gait exam (Neuro): Unable to assess gait Motor exam (neuro): 5/5 motor strength present throughout and Normal motor muscle tone present throughout Deep tendon reflexes (DTR's): Right triceps reflex intensity grade: 3+, Left triceps reflex intensity grade: 3+, Rt Biceps (C5, C6): 3+, Left biceps reflex intensity grade: 3+, Right brachioradialis reflex intensity grade: 3+, Left brachioradialis reflex intensity grade: 3+, Right patellar reflex intensity grade: 3+ and Left patellar reflex intensity grade: 3+ Coordination: [id number] test normal Assessment & Plan Assessment & Plan (1) Dementia: Code(s): F03.90 - Unspecified dementia, unspecified severity, without behavioral disturbance, psychotic disturbance, mood disturbance, and anxiety (2) Gait disorder: Code(s): R26.9 - Unspecified abnormalities of gait and mobility Plan Continue aricept 5mg qd Increase namenda XR 14mg qd Increase sertraline 125mg qd for better OCD control Discussed to use walker more consistently Medications: New sertraline 25 mg PO DAILY 30 tabs 6RF Changed From memantine (Namenda XR) 7 mg PO DAILY 30 ea 6RF To memantine 14 mg PO DAILY 30 ea 6RF Coding Level of Care Code Est Pt Level 4 (89554) Diagnoses Dementia F03.90 Gait disorder R26.9
[2023-03-21 07:54] VITALS: BP 112/78; PULSE 71; O2SAT 96
== END 2023-03-21 08:35 | disposition home or self-care (01) ==
PROVIDERS: PCP Family Medicine; Visit Provider Psychiatry & Neurology Neurology
DX: F03.90 Unspecified dementia, unspecified severity, without behavioral disturbance, psychotic disturbance, mood disturbance, and anxiety (principal); R26.9 Unspecified abnormalities of gait and mobility
CPT/HCPCS: 99214

== ENCOUNTER → 2023-03-21 07:38 | Outpatient (BNVA) | payer MEDICARE, SELFPAY | PROVIDERS: PCP Family Medicine; Visit Provider Psychiatry & Neurology Neurology | DX: F03.90 Unspecified dementia, unspecified severity, without behavioral disturbance, psychotic disturbance, mood disturbance, and anxiety (principal); R26.9 Unspecified abnormalities of gait and mobility | CPT/HCPCS: 99212 ==

== ENCOUNTER → 2023-11-04 07:45 | Outpatient (BNVA) | payer MEDICARE, SELFPAY | PROVIDERS: PCP Family Medicine; Visit Provider Psychiatry & Neurology Neurology ==

== ENCOUNTER 2023-11-04 07:55 | Outpatient (AMB) | payer MEDICARE, SELFPAY ==
--- NOTE | 2023-11-04 07:46 | A.OFFVIS_ITS ---
Intake Intake Visit Reasons: Follow up [phone] Intake Note: Pt presents for follow up via telehealth visit. Engineering Secretary Required: No Allergies Sulfa (Sulfonamide Antibiotics) Allergy (Unknown, Verified 11/04/23 07:46) Unknown Medication List - Last Reconciled 11/04/23 by Autumn Bethea MD calcium carbonate-vitamin D3 600 mg-5 mcg (200 unit) 1 tab PO BID cetirizine 1 tab PO BEDTIME donepezil 5 mg PO DAILY famotidine 40 mg PO BID fluticasone propion-salmeterol 250-50 mcg/dose (Wixela Inhub) 1 puff inhalation Q12H food supplemt, lactose-reduced (Ensure oral liquid) 1 ea PO TID levalbuterol HCl 1 amp inhalation Q4H PRN lidocaine 5% 1 patch topical DAILY memantine 7 mg PO DAILY 90 days mirabegron ER (Myrbetriq) 1 tab PO DAILY sertraline 25 mg PO DAILY sertraline 100 mg (2 x 50 mg) PO BEDTIME 30 days tobramycin in 0.225 % NaCl 300 mg/5 mL 300 mg inhalation Q12H tolterodine 1 tab PO BID triamcinolone acetonide 0.1% 1 appl topical DAILY HPI HPI Comments History of Present Illness Details 78y/o female with dementia calls for [facility]. her daughter helps with the history. she was admitted to the hospital last week for aspiration pneumonia Her dementia is worse- confused with time, confused with people. she needs help with all her ADLs. she can walk with walker. 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 she has sundowning with increased confusion after 4 pm . she is agitated in the evenings.No known hallucinations. she wakes up in the middle of the night and tries to use her bedside commode and has falls . She had fracture of L2,L3 L4 vertebral body after multiple falls in the past 1 year- had kyphoplasty . . she uses a walker at home.she could not tolerate aricept 10 mg but now on 5 mg qd her short term memory is worse. she also has OCD and showers constantly PFSH Medical History OCD (obsessive compulsive disorder) Gait disorder Dementia Urinary urgency Anxiety GERD (gastroesophageal reflux disease) Osteoporosis Surgical History History of back surgery Family History Mother HTN (hypertension) Family/Other HTN (hypertension) Social History Alcohol intake: never Patient Tobacco Use Status: Never used Tobacco service: No Current occupational status: retired Review of Systems Neuro Reports confusion Psych Reports confusion Physical Exam Const General: cooperative, healthy appearing, comfortable and confusion Nutritional Appearance: average body habitus Orientation/consciousness: confusion Eyes Pupils: Equal, round and reactive pupils present Neuro General: tone normal, moves all extremities, confusion and Unable to assess gait Cranial nerves: Yes Facial sensation intact/muscles of mastication intact, Yes Equal, round and reactive pupils present, Yes Bilaterally intact EOM present, Yes Nystagmus not present, Yes Normal facial strength present, Yes Midline tongue present, Yes Symmetric palate elevation present and Yes Ability to bilaterally elevate shoulders present Cognition (Neuro): abnormal cognition Gait exam (Neuro): Unable to assess gait Motor exam (neuro): 5/5 motor strength present throughout and Normal motor muscle tone present throughout Deep tendon reflexes (DTR's): Right triceps reflex intensity grade: 3+, Left triceps reflex intensity grade: 3+, Rt Biceps (C5, C6): 3+, Left biceps reflex intensity grade: 3+, Right brachioradialis reflex intensity grade: 3+, Left brachioradialis reflex intensity grade: 3+, Right patellar reflex intensity grade: 3+ and Left patellar reflex intensity grade: 3+ Coordination: [id number] test normal Assessment & Plan Assessment & Plan (1) Dementia: Comment: moderate to severe Code(s): F03.90 - Unspecified dementia, unspecified severity, without behavioral disturbance, psychotic disturbance, mood disturbance, and anxiety (2) Gait disorder: Code(s): R26.9 - Unspecified abnormalities of gait and mobility Plan Continue aricept 5mg qd Namenda XR 7mg qd Sertraline 125mg qd for better OCD control Discussed to use walker more consistently Medications: New mirtazapine 7.5 mg PO BEDTIME 30 tabs 0RF Telehealth Telehealth Location of provider rendering services: practice address Location of patient: address on file Patient Identification confirmed using: Name, : Yes Telehealth method: voice only Patient verbally consented to treatment: Yes Patient verbally consented to billing insurance company: Yes Patient informed of any privacy concerns related to visit: Yes Minutes spent on Phone/Video with Pt.: 20 Coding Level of Care Code Tele Est Pt Level 4 (14935) Diagnoses Dementia F03.90 Gait disorder R26.9
== END 2023-11-04 14:16 | disposition home or self-care (01) ==
PROVIDERS: PCP Family Medicine; Visit Provider Psychiatry & Neurology Neurology
DX: F03.C18 Unspecified dementia, severe, with other behavioral disturbance (principal); R26.9 Unspecified abnormalities of gait and mobility
CPT/HCPCS: 99442